=== PATIENT | male | born 1935 | race Caucasian/White ===

== ENCOUNTER → 2016-05-05 | Outpatient (CLI) | payer BC ==
[~2016-05-05] MED LIST: ASPI81TA28 PO; ATOR-26 PO; B-COCAP2 PO; CLOP1TAB15 PO; MAGNESIUM PO; MULT-513 PO; NTRGSL/4 UT; OMEG10007 PO; VITA400C15 PO
[2016-05-05 12:17] LABS: ALT/SGPT 36 U/L (12-78); BLOOD UREA NITROGEN 21 mg/dl (7-18); BUN/CREATININE RATIO 26.4 (10-20); CALCIUM 8.8 mg/dl (8.5-10.1); CARBON DIOXIDE 31 mmol/L (21-32); CHLORIDE 105 mmol/L (98-107); CHOLESTEROL 137 mg/dl (0-200); CREATININE 0.78 mg/dl (0.60-1.40); GLUCOSE 89 mg/dl (70-99); POTASSIUM 4.5 mmol/L (3.5-5.1); SODIUM 143 mmol/L (136-145); TRIGLYCERIDES 100 mg/dl (0-150); VERY LOW DENSITY LIPOPROT CALC 20 mg/dl
[2016-05-05 12:25] LABS: ALB/GLOB RATIO 1.2 (0.9-2); ALKALINE PHOSPHATASE 69 U/L (45-117); AST/SGOT 27 U/L (15-37); CHOLESTEROL/HDL RATIO 2.1; HDL CHOLESTEROL 64 mg/dl; LDL CHOLESTEROL CALCULATED 53 mg/dl; PHOSPHORUS 3.3 mg/dl (2.5-4.9); URIC ACID 5.3 mg/dl (2.6-7.2)
[2016-05-05 12:36] LABS: ESTIMATED AVERAGE GLUCOSE 114 mg/dl; HA1C FLAG Normal (Normal)
--- NOTE | 2016-05-09 12:49 | CODING QUERY MEDICAL NECESSITY ---
SUPPORTING DIAGNOSIS NEEDED A supporting diagnosis is required for the test/procedure performed on this patient in order for us to be reimbursed by the patient's insurance. Please provide a supporting diagnosis for the following test/procedure listed below next to the test name along with your signature. *If there is no additional diagnosis for this patient that would support the following test/procedure please document that below next to the test/procedure. Test(s)/Procedure(s) that require a supporting diagnosis: DOS 05/05 * Vitamin D DIAGNOSIS: * TSH DIAGNOSIS: * Lipids DIAGNOSIS: Provider Signature: Date: Thank you Sabiha Delcid Health Information Management Once completed, please kindly fax back to [phone] For questions please call [phone]
== END | disposition home or self-care (01) ==
LOC: C.LABBC 10:15
PROVIDERS: ATTEND Family Medicine
DX: R73.09 Other abnormal glucose (principal)

== ENCOUNTER → 2017-05-17 | Outpatient (CLI) | payer BC ==
[2017-05-17 10:59] LABS: BASO % 0.4 %; BASO ABS # 0.02 K/uL (0-0.2); EOS % 3.7 %; EOS ABS # 0.21 K/uL (0-0.5); HEMATOCRIT 46.2 % (42-52); HEMOGLOBIN 16.1 g/dL (14.0-18.0); LYMPH % 23.6 %; LYMPH ABS # 1.34 K/uL (1.2-3.4); MEAN CELL VOLUME 93.5 fL (80-100); MEAN CORPUSCULAR HEMOGLOBIN 32.6 pg (25-34); MEAN CORPUSCULAR HGB CONC 34.8 g/dl (32-36); MEAN PLATELET VOLUME 9.5 fL (7.4-10.4); MONO % 7.9 %; MONO ABS # 0.45 K/uL (0.11-0.59); NEUT % 64.4 %; NEUT ABS # 3.67 K/uL (1.4-6.5); PLATELET COUNT 200 K/uL (130-400); RED CELL DISTRIBUTION WIDTH CV 12.4 % (11.5-14.5); WHITE BLOOD COUNT 5.69 K/uL (4.8-10.8)
[2017-05-17 11:23] LABS: HEMOGLOBIN A1C 5.6 % (4.5-5.6)
[2017-05-17 11:33] LABS: BLOOD UREA NITROGEN 19 mg/dl (7-18); GLUCOSE 94 mg/dl (70-99)
[2017-05-17 11:34] LABS: ALBUMIN 3.7 gm/dl (3.4-5.0); ALT/SGPT 42 U/L (12-78); AST/SGOT 31 U/L (15-37); CARBON DIOXIDE 29 mmol/L (21-32); CHOLESTEROL 121 mg/dl (0-200); CREATININE 0.79 mg/dl (0.60-1.40); POTASSIUM 4.2 mmol/L (3.5-5.1); SODIUM 138 mmol/L (136-145); URIC ACID 5.4 mg/dl (2.6-7.2)
[2017-05-17 11:43] LABS: ALKALINE PHOSPHATASE 62 U/L (45-117); LDL CHOLESTEROL CALCULATED 40 mg/dl; TOTAL PROTEIN 6.7 gm/dl (6.4-8.2); TRANSFERRIN 222 mg/dl (200-360)
== END | disposition home or self-care (01) ==
LOC: C.LABBC 08:10
PROVIDERS: ATTEND Family Medicine
DX: R73.09 Other abnormal glucose (principal); E55.9 Vitamin D deficiency, unspecified; D51.9 Vitamin B12 deficiency anemia, unspecified; E78.9 Disorder of lipoprotein metabolism, unspecified; R53.83 Other fatigue

== ENCOUNTER 2020-09-10 07:54 | Observation (INO) ==
[2020-09-10] MEDS ORDERED: ASPIRIN CHEW 324 MG PO STA (07:59)
--- NOTE | 2020-09-10 08:20 | Emergency Department Note ---
History of Present Illness General Chief Complaint: Chest Pain Stated Complaint: CHEST PAIN Time Seen by Provider: 09/10/20 07:58 History of Present Illness Provider Complaint: chest pain Time: 06:00 Duration: improved and now resolved Onset: during rest Pain Location: right chest Pain Radiation: none Severity: moderate Current Pain Intensity: 0 Quality: + tightness, + aching and + heaviness Relieved By: + nitroglycerin Exacerbated By: + nothing Context: no recent illness, no recent surgery, no recent travel, no tra chriss/injury and no history of DVT/PE Associated symptoms: no nausea, no vomiting, no diaphoresis, no dyspnea, no sense of impending doom, no syncope, no palpitations, no fever and no leg swelling Treatments prior to arrival: nitroglycerin Home Medications Medication Instructions Recorded Confirmed Type ascorbic acid (vitamin C) 500 mg 500 mg PO QAM cap 01/23/19 09/10/20 History capsule atorvastatin 80 mg tablet 80 mg PO HS #90 tab 01/23/19 09/10/20 History cholecalciferol (vitamin D3) 25 1,000 unit PO QAM cap 01/23/19 09/10/20 History mcg (1,000 unit) capsule coenzyme Q10 100 mg capsule 100 mg PO QAM cap 01/23/19 09/10/20 History metoprolol succinate 25 mg 25 mg PO HS tab 01/23/19 09/10/20 History tablet,extended release 24 hr multivitamin 1 tab PO QAM 01/23/19 09/10/20 History vitamin E succinate 200 unit tablet 200 unit PO QAM tab 01/23/19 09/10/20 History aspirin [Aspir-81] 81 mg PO HS 09/10/20 09/10/20 History calcium carbonate [Calcium 600] 600 mg PO QAM 09/10/20 09/10/20 History clopidogrel [Plavix] 75 mg PO .Q2D@QAM 09/10/20 09/10/20 History memantine 10 mg PO HS 09/10/20 09/10/20 History nitroglycerin [Nitrostat] 0.4 mg SUBLINGUAL UD 09/10/20 09/10/20 History omega 1-xss-jjw-fish oil [Fish Oil] 1 cap PO BID 09/10/20 09/10/20 History vitamin B complex 1 tab PO QAM 09/10/20 09/10/20 History Allergies Allergy/AdvReac Type Severity Reaction Status Date / Time cinnamon Allergy Unknown Verified 09/10/20 08:45 Sulfa (Sulfonamide Allergy Unknown Verified 09/10/20 08:45 Antibiotics) Past Med/Surg History Medical History Acute renal failure (05/01/14) Hyperlipidemia Hypertension Memory loss [place] (myocardial infarction) Mild cognitive impairment No pertinent family history Surgical History No pertinent past surgical history Social History Smoking Status: Never smoker Feels Safe at Home: Yes Review of Systems A total of 10 systems reviewed and were otherwise negative Physical Exam Vital Signs Vital Signs - 24 hr 09/10/20 07:57 09/10/20 08:00 09/10/20 08:05 Temperature 36.5 C Temperature Source Oral Pulse Rate 62 58 L 58 L Respiratory Rate 18 15 21 Respiratory Effort / Characteristics Non-Labored Respiratory Depth Normal Blood Pressure 152/77 H 152/77 H Blood Pressure Mean 102 102 Pulse Oximetry 98 Oxygen Delivery Method Room Air Sepsis Recent Fever Within 48 Hours No Sepsis New/Unexplained Change in Mental Status No Sepsis Action Taken by Nursing No Action Required 09/10/20 08:12 09/10/20 08:30 09/10/20 09:00 Temperature Temperature Source Pulse Rate 57 L 70 Respiratory Rate 18 18 Respiratory Effort / Characteristics Respiratory Depth Blood Pressure 150/77 H 163/75 H 161/84 H Blood Pressure Mean 101 104 109 Pulse Oximetry Oxygen Delivery Method Sepsis Recent Fever Within 48 Hours Sepsis New/Unexplained Change in Mental Status Sepsis Action Taken by Nursing 09/10/20 09:44 09/10/20 09:45 09/10/20 09:46 Temperature Temperature Source Pulse Rate 65 63 64 Respiratory Rate 18 18 20 Respiratory Effort / Characteristics Respiratory Depth Blood Pressure 172/77 H Blood Pressure Mean 108 Pulse Oximetry 96 Oxygen Delivery Method Room Air Sepsis Recent Fever Within 48 Hours Sepsis New/Unexplained Change in Mental Status Sepsis Action Taken by Nursing 09/10/20 09:50 09/10/20 10:08 09/10/20 10:09 Temperature Temperature Source Pulse Rate 67 58 L 63 Respiratory Rate 17 19 17 Respiratory Effort / Characteristics Respiratory Depth Blood Pressure 189/87 H Blood Pressure Mean 121 Pulse Oximetry Oxygen Delivery Method Sepsis Recent Fever Within 48 Hours Sepsis New/Unexplained Change in Mental Status Sepsis Action Taken by Nursing 09/10/20 10:10 09/10/20 10:20 09/10/20 10:30 Temperature Temperature Source Pulse Rate 60 64 65 Respiratory Rate 20 20 20 Respiratory Effort / Characteristics Respiratory Depth Blood Pressure Blood Pressure Mean Pulse Oximetry Oxygen Delivery Method Sepsis Recent Fever Within 48 Hours Sepsis New/Unexplained Change in Mental Status Sepsis Action Taken by Nursing 09/10/20 10:40 09/10/20 10:50 09/10/20 11:00 Temperature Temperature Source Pulse Rate 64 63 67 Respiratory Rate 20 21 20 Respiratory Effort / Characteristics Respiratory Depth Blood Pressure Blood Pressure Mean Pulse Oximetry Oxygen Delivery Method Sepsis Recent Fever Within 48 Hours Sepsis New/Unexplained Change in Mental Status Sepsis Action Taken by Nursing 09/10/20 11:10 09/10/20 11:20 09/10/20 11:30 Temperature Temperature Source Pulse Rate 65 66 64 Respiratory Rate 32 H 13 13 Respiratory Effort / Characteristics Respiratory Depth Blood Pressure Blood Pressure Mean Pulse Oximetry Oxygen Delivery Method Sepsis Recent Fever Within 48 Hours Sepsis New/Unexplained Change in Mental Status Sepsis Action Taken by Nursing 09/10/20 11:40 09/10/20 11:50 09/10/20 12:00 Temperature Temperature Source Pulse Rate 62 87 58 L Respiratory Rate 17 28 H 18 Respiratory Effort / Characteristics Respiratory Depth Blood Pressure Blood Pressure Mean Pulse Oximetry Oxygen Delivery Method Sepsis Recent Fever Within 48 Hours Sepsis New/Unexplained Change in Mental Status Sepsis Action Taken by Nursing 09/10/20 12:10 09/10/20 12:20 09/10/20 12:30 Temperature Temperature Source Pulse Rate 61 61 63 Respiratory Rate 27 H 26 H 21 Respiratory Effort / Characteristics Respiratory Depth Blood Pressure 198/89 H 196/95 H Blood Pressure Mean 125 128 Pulse Oximetry Oxygen Delivery Method Sepsis Recent Fever Within 48 Hours Sepsis New/Unexplained Change in Mental Status Sepsis Action Taken by Nursing Physical Exam GENERAL: He is oriented to person, place, and time. He appears well-developed and well-nourished. He does not appear distressed. HENT: Exam performed. - Head: Normocephalic and atraumatic. - Right Ear: External ear normal. No mastoid tenderness. - Left Ear: External ear normal. No mastoid tenderness. - Mouth/Throat: The oropharynx is clear and moist. No trismus in the jaw. No dental abscesses or uvula swelling. No oropharyngeal exudate or tonsillar ab scesses. EYES: Conjunctivae and EOM are normal. Pupils are equal, round, and reactive to light. Right eye exhibits no discharge. Left eye exhibits no discharge. No scleral icterus. NECK: Normal range of motion. Neck supple. No JVD present. No spinous process tenderness present. No carotid bruit present. No rigidity. No tracheal deviation and normal range of motion present. No Brudzinski's sign and no Kernig's sign noted. CV: Normal rate, regular rhythm, normal heart sounds and intact distal pulses. There is no peripheral edema. Palpable radial pulses bue. PULM/CHEST: Effort normal and breath sounds normal. No respiratory distress. No stridor. He has no wheezes. He has no rales. - Chest Wall: He exhibits no tenderness. ABD: The abdomen is soft. Bowel sounds are normal. He has no distension. No mass is present. There is no tenderness. There is no rebound, no guarding, no Mari's sign and no tenderness at McBurney's point. Rovsig negative. MUSC/SKEL: Normal range of motion. There is no peripheral edema, tenderness or deformity. LYMPH: No cervical adenopathy. NEURO: He is alert and oriented to person, place, and time. He has normal strength. No cranial nerve deficit or sensory deficit. Coordination and gait normal. GCS eye subscore is 4. GCS verbal subscore is 5. GCS motor subscore is 6. Cerebellar tests wnl. SKIN: Skin is warm and dry. He is not diaphoretic. PSYCH: He has a normal mood and affect. Behavior is normal. Judgment and thought content normal. Course Course 0758: The patient was evaluated in room C4. A complete history and physical exam was performed Cardiac monitoring: An order was placed for continuous cardiac monitoring. The monitor shows a rate of 60 with sinus rhythm 1018: Vital signs stable. Labs show a leukocytosis of 13.3 and hyponatremia of 128. Patient's glucose is within normal limits. Troponin is within normal limits. Patient states his pain resolved after he took the nitroglycerin. Patient will be admitted to the hospital service for rule out [facility] hospitalist Dr. Fitzpatrick notified. Administered Medications Discontinued Medications Aspirin (Aspirin Chew 324 Mg) 324 mg PO NOW STA Stop: 09/10/20 08:00 Last Admin: 09/10/20 08:20 Dose: 324 mg Documented by: [id number] Heparin Sodium/Dextrose (Heparin Iv Adult Wt-Based Standard *No* Bolus Protocol) 1 ea IV ONE ONE; Protocol Stop: 09/10/20 11:49 Last Admin: 09/10/20 12:14 Dose: 1 ea Documented by: [id number] Heparin Sodium/Dextrose (Heparin 83987 Unit/500 Ml D5w) Confirm Administered Dose 25,000 units IV .STK-MED ONE Stop: 09/10/20 12:09 Last Admin: 09/10/20 12:15 Dose: 24 ml Documented by: [id number] Cosigned by: [id number] Ioversol (Optiray 350 500ml) 120 ml IV ONCE ONE Stop: 09/10/20 09:07 Last Admin: 09/10/20 09:06 Dose: 120 ml Documented by: [id number] Medical Decision Making Laboratory Data Result diagrams: 09/10/20 08:03 09/10/20 08:03 Labs: Lab Results 09/10/20 09/10/20 09/10/20 Range/Units 08:03 08:03 08:03 WBC 13.35 H (4.8-10.8) K/uL RBC 4.67 L (4.7-6.1) M/uL Hgb 15.4 (14.0-18.0) g/dL Hct 42.7 (42-52) % MCV 91.4 (80-100) fL MCH 33.0 (25-34) pg MCHC 36.1 H (32-36) g/dL RDW Std Deviation 39.1 (36.4-46.3) fL RDW Coeff of Meryl 11.7 (11.5-14.5) % Plt Count 255 (130-400) K/uL MPV 9.0 (7.4-10.4) fL Immature Gran % (Auto) 0.3 % Neut % (Auto) 90.5 % Lymph % (Auto) 4.8 % [place] % (Auto) 4.3 % Eos % (Auto) 0.0 % Baso % (Auto) 0.1 % Neut # (Auto) 12.09 H (1.4-6.5) K/uL Lymph # (Auto) 0.64 L (1.2-3.4) K/uL [place] # (Auto) 0.57 (0.11-0.59) K/uL Eos # (Auto) 0.00 (0-0.5) K/uL Baso # (Auto) 0.01 (0-0.2) K/uL Immature Gran # (Auto) 0.04 H (0.00-0.02) K/uL PT 11.2 (9.0-12.0) Seconds INR 1.1 (0.9-1.1) APTT 20.9 L (21.0-31.0) Seconds PTT Ratio 0.8 D-Dimer 9610 H* (0-500) ug/L FEU Sodium 128 L (136-145) mmol/L Potassium 4.1 (3.5-5.1) mmol/L Chloride 96 L (98-107) mmol/L Carbon Dioxide 24 (21-32) mmol/L Anion Gap 9.0 (3-11) BUN 11 (7-18) mg/dl Creatinine 0.65 (0.6-1.4) mg/dl Est Cr Clr Drug Dosing 80.5 ml/min Est GFR ( Amer) 104.3 ml/min Est GFR (Non-Af Amer) 90.0 ml/min BUN/Creatinine Ratio 16.1 (10-20) Glucose 143 H (70-99) mg/dl Calcium 8.8 (8.5-10.1) mg/dl Total Bilirubin 1.4 H (0.2-1) mg/dl Direct Bilirubin 0.3 H (0-0.2) mg/dl AST 28 (15-37) U/L ALT 29 (12-78) U/L Alkaline Phosphatase 86 (45-117) U/L Troponin I < 0.015 (0-0.045) ng/ml Total Protein 6.7 (6.4-8.2) gm/dl Albumin 3.5 (3.4-5.0) gm/dl Lipase 95 (73-393) U/L COVID-19 Eval Order SARS-CoV-2 (PCR) (Negative) 09/10/20 09/10/20 Range/Units 10:33 10:33 WBC (4.8-10.8) K/uL RBC (4.7-6.1) M/uL Hgb (14.0-18.0) g/dL Hct (42-52) % MCV (80-100) fL MCH (25-34) pg MCHC (32-36) g/dL RDW Std Deviation (36.4-46.3) fL RDW Coeff of Meryl (11.5-14.5) % Plt Count (130-400) K/uL MPV (7.4-10.4) fL Immature Gran % (Auto) % Neut % (Auto) % Lymph % (Auto) % [place] % (Auto) % Eos % (Auto) % Baso % (Auto) % Neut # (Auto) (1.4-6.5) K/uL Lymph # (Auto) (1.2-3.4) K/uL [place] # (Auto) (0.11-0.59) K/uL Eos # (Auto) (0-0.5) K/uL Baso # (Auto) (0-0.2) K/uL Immature Gran # (Auto) (0.00-0.02) K/uL PT (9.0-12.0) Seconds INR (0.9-1.1) APTT (21.0-31.0) Seconds PTT Ratio D-Dimer (0-500) ug/L FEU Sodium (136-145) mmol/L Potassium (3.5-5.1) mmol/L Chloride (98-107) mmol/L Carbon Dioxide (21-32) mmol/L Anion Gap (3-11) BUN (7-18) mg/dl Creatinine (0.6-1.4) mg/dl Est Cr Clr Drug Dosing ml/min Est GFR ( Amer) ml/min Est GFR (Non-Af Amer) ml/min BUN/Creatinine Ratio (10-20) Glucose (70-99) mg/dl Calcium (8.5-10.1) mg/dl Total Bilirubin (0.2-1) mg/dl Direct Bilirubin (0-0.2) mg/dl AST (15-37) U/L ALT (12-78) U/L Alkaline Phosphatase (45-117) U/L Troponin I (0-0.045) ng/ml Total Protein (6.4-8.2) gm/dl Albumin (3.4-5.0) gm/dl Lipase (73-393) U/L COVID-19 Eval Order Covid19 at [facility] SARS-CoV-2 (PCR) NEGATIVE (Negative) Imaging Data Chest x-ray: Radiologist's impression: Chest X-Ray 09/10/20 07:59 XR chest 2V PA/lateral HISTORY: 84 years-old Male cp acute atypical chest pain COMPARISON: CTA chest of same day, chest radiograph 06/04/2018 TECHNIQUE: PA and lateral views of the chest FINDINGS: Cardiomediastinal and hilar silhouettes are within normal limits. Calcified plaque of the thoracic aorta. Loop recorder device. No pneumothorax, pleural effusion, airspace consolidation or overt pulmonary edema. Bones of the chest appear grossly intact. IMPRESSION: No acute process. ACT 112: Negative or not required by law. The above report was generated using voice recognition software. It may contain grammatical, syntax or spelling errors. Electronically signed by: Hilton Honeycutt M.D. 09/10/2020 9:34 AM Chest CTA 09/10/20 08:47 CT ANGIOGRAM OF THE CHEST CLINICAL HISTORY: Atypical chest pain. Reported history of melanoma. COMPARISON STUDY: Chest x-ray dated 06/04/2018. Chest CT dated 07/02/2008. PET/CT dated 08/02/2009. TECHNIQUE: Following the IV administration of 120 cc of Optiray 350, CT angiogram of the chest was performed from the upper abdomen to the thoracic inlet utilizing the pulmonary embolus protocol. Images are reviewed in the axial, sagittal, and coronal planes. 3-D MIPS images are created and assessed. IV contrast was administered without complication. A dose lowering technique was utilized adhering to the principles of ALARA. CT DOSE: 407.50 mGy.cm FINDINGS: Thyroid: Imaged portions of the thyroid gland are normal in size and attenuation. Thoracic aorta: There is atherosclerotic calcification of the thoracic aorta, which is normal in caliber and demonstrates standard 3-vessel arch anatomy. No dissection is seen. Pulmonary vasculature: The pulmonary trunk is normal in caliber. There are no filling defects identified in main, lobar, or segmental pulmonary branches to suggest pulmonary embolus. Heart: The heart is enlarged and without pericardial effusion. The coronary arteries are densely calcified. Lungs and pleural spaces: There is no airspace consolidation typical for pneumonia or pleural effusion. The trachea and central airways are clear. Scarring/atelectasis is noted at the lung bases. There is a 7 mm left lower lobe pulmonary nodule seen on image #132. No additional pulmonary lesions are identified. Mediastinum: There is no mediastinal lymphadenopathy. Nazia: Clear. Axillae: There is no axillary lymphadenopathy. Upper abdomen: Diverticulosis is noted in the partially imaged left colon. There is a small hiatal hernia. Skeletal structures: The skeletal structures are osteopenic. Degenerative change is noted in the shoulders and thoracic spinal. There is mild hyperkyphosis. No lytic or blastic bony lesions are seen. IMPRESSION: 1. There is no evidence of pulmonary embolus in the main, lobar, or segmental pulmonary arteries. 2. There is no airspace consolidation or pleural effusion. 3. Cardiomegaly. 4. There is a 7 mm left lower lobe pulmonary nodule. This is pathologically indeterminant but new from studies dating 2008 and 2009. Neoplasm is the libertad gnosis of exclusion. A 3 month follow-up chest CT is recommended for reassessment, and nonemergent pulmonology follow-up is advised. 5. Additional findings as above. ACT 112: Positive. There are findings on this exam that require communication between the performing entity and the patient following Patient Test Result Information Act ([place] Act 112) guidelines. Electronically signed by: Juan Miguel Baker M.D. 09/10/2020 10:07 AM ECG Data Indication: chest pain Rate (beats per minute): 62 Rhythm: normal sinus Findings: + 1st degree AV block; no ST depression, no ST elevation and no prolonged QT MDM Narrative 0758: The patient was evaluated in room C4. A complete history and physical exam was performed Cardiac monitoring: An order was placed for continuous cardiac monitoring. The monitor shows a rate of 60 with sinus rhythm 1018: Vital signs stable. Labs show a leukocytosis of 13.3 and hyponatremia of 128. Patient's glucose is within normal limits. Troponin is within normal limits. Patient states his pain resolved after he took the nitroglycerin. Patient will be admitted to the hospital service for rule out [facility] hospitalist Dr. Fitzpatrick notified. Impression & Plan Chest pain Discharge Plan Visit Data Chief Complaint: Chest Pain Stated Complaint: CHEST PAIN ED Provider: Jarrett Mahan Discharge Problem: Chest pain Patient Disposition: Being Evaluated by Hospitalist Forms Stand Alone Forms: [facility] Prescriptions Prescriptions: No Action atorvastatin 80 mg tablet 80 mg PO HS Qty: 90 RF: 0 coenzyme Q10 100 mg capsule 100 mg PO QAM RF: 0 metoprolol succinate 25 mg tablet extended release 24 hr 25 mg PO HS RF: 0 multivitamin [Daily Multi-Vitamin] tablet 1 tab PO QAM RF: 0 ascorbic acid (vitamin C) 500 mg capsule 500 mg PO QAM RF: 0 cholecalciferol (vitamin D3) 1,000 unit capsule 1,000 unit PO QAM RF: 0 vitamin E succinate 200 unit tablet 200 unit PO QAM RF: 0 clopidogrel [Plavix] 75 mg Tablet 75 mg PO .Q2D@QAM RF: 0 aspirin [Aspir-81] 81 mg Tablet,Delayed Release (Dr/Ec) 81 mg PO HS RF: 0 calcium carbonate [Calcium 600] 600 mg calcium (1,500 mg) Tablet 600 mg PO QAM RF: 0 nitroglycerin [Nitrostat] 0.4 mg Tablet, Sublingual 0.4 mg sublingual UD RF: 0 vitamin B complex Tablet 1 tab PO QAM RF: 0 omega 7-ltb-bdb-fish oil [Fish Oil] 1,200 (144-216) mg Capsule 1 cap PO BID RF: 0 memantine 10 mg tablet 10 mg PO HS RF: 0 Referrals Referrals: Yunier Shoemaker MD [Primary Care Provider] - Discharge Problem: Chest pain Qualifiers: Chest pain type: unspecified Qualified Code(s): R07.9 - Chest pain, unspecified
[2020-09-10 08:24] LABS: Basophils # (auto) 0.01 K/uL (0-0.2); Basophils % (auto) 0.1 %; Hematocrit (blood only) 42.7 % (42-52); Hemoglobin 15.4 g/dL (14.0-18.0); Immature Granulocytes # (auto) 0.04 K/uL (0.00-0.02); Immature Granulocytes % (auto) 0.3 %; Lymphocytes # (auto) 0.64 K/uL (1.2-3.4); Lymphocytes % (auto) 4.8 %; Mean Corpuscular Hgb Conc 36.1 g/dL (32-36); Mean Corpuscular Volume 91.4 fL (80-100); Monocytes # (auto) 0.57 K/uL (0.11-0.59); Monocytes % (auto) 4.3 %; Neutrophils # (auto) 12.09 K/uL (1.4-6.5); Neutrophils % (auto) 90.5 %; Platelet Count 255 K/uL (130-400); RDW Coefficient of Variation 11.7 % (11.5-14.5); RDW Standard Deviation 39.1 fL (36.4-46.3); Red Blood Count 4.67 M/uL (4.7-6.1); White Blood Count 13.35 K/uL (4.8-10.8)
[2020-09-10 08:41] LABS: Alanine Aminotransferase 29 U/L (12-78); Albumin Level 3.5 gm/dl (3.4-5.0); Aspartate Aminotransferase 28 U/L (15-37); BUN Creatinine Ratio 16.1 (10-20); Bilirubin Direct 0.3 mg/dl (0-0.2); Blood Urea Nitrogen 11 mg/dl (7-18); Calcium 8.8 mg/dl (8.5-10.1); Carbon Dioxide 24 mmol/L (21-32); Chloride 96 mmol/L (98-107); Creatinine Clr Calc Pharmacy 80.5 ml/min; Est GFR (African American) 104.3 ml/min; Glucose 143 mg/dl (70-99); Lipase 95 U/L (73-393); Potassium 4.1 mmol/L (3.5-5.1); Sodium 128 mmol/L (136-145)
[2020-09-10 08:45] LABS: INR 1.1 (0.9-1.1); Partial Thromboplastin Ratio 0.8; Partial Thromboplastin Time 20.9 Seconds (21.0-31.0); Prothrombin Time 11.2 Seconds (9.0-12.0)
[2020-09-10 08:46] LABS: Alkaline Phosphatase 86 U/L (45-117); Bilirubin,Total 1.4 mg/dl (0.2-1); D Dimer 9610 ug/L FEU (0-500); Total Protein 6.7 gm/dl (6.4-8.2); Troponin I < 0.015 ng/ml (0-0.045)
[2020-09-10] MEDS ORDERED: OPTIRAY 350 500ml IV ONE (09:06)
--- NOTE | 2020-09-10 09:36 | XRay Report ---
XR chest 2V PA/lateral HISTORY: 84 years-old Male cp acute atypical chest pain COMPARISON: CTA chest of same day, chest radiograph 06/04/2018 TECHNIQUE: PA and lateral views of the chest FINDINGS: Cardiomediastinal and hilar silhouettes are within normal limits. Calcified plaque of the thoracic ao rta. Loop recorder device. No pneumothorax, pleural effusion, airspace consolidation or overt pulmona ry edema. Bones of the chest appear grossly intact. IMPRESSION: No acute process. ACT 112: Negative or not required by law. The above report was generated using voice recognition software. It may contain grammatical, syntax o r spelling errors. Electronically signed by: Hilton Honeycutt M.D. 09/10/2020 9:34 AM
--- NOTE | 2020-09-10 10:08 | CT Scan Report ---
CT ANGIOGRAM OF THE CHEST CLINICAL HISTORY: Atypical chest pain. Reported history of melanoma. COMPARISON STUDY: Chest x-ray dated 06/04/2018. Chest CT dated 07/02/2008. PET/CT dated 08/02/2009. TECHNIQUE: Following the IV administration of 120 cc of Optiray 350, CT angiogram of the chest was pe rformed from the upper abdomen to the thoracic inlet utilizing the pulmonary embolus protocol. Images are reviewed in the axial, sagittal, and coronal planes. 3-D MIPS images are created and assessed. I V contrast was administered without complication. A dose lowering technique was utilized adhering to the principles of ALARA. CT DOSE: 407.50 mGy.cm FINDINGS: Thyroid: Imaged portions of the thyroid gland are normal in size and attenuation. Thoracic aorta: There is atherosclerotic calcification of the thoracic aorta, which is normal in giancarlo david and demonstrates standard 3-vessel arch anatomy. No dissection is seen. Pulmonary vasculature: The pulmonary trunk is normal in caliber. There are no filling defects identif ied in main, lobar, or segmental pulmonary branches to suggest pulmonary embolus. Heart: The heart is enlarged and without pericardial effusion. The coronary arteries are densely calc ified. Lungs and pleural spaces: There is no airspace consolidation typical for pneumonia or pleural effusio n. The trachea and central airways are clear. Scarring/atelectasis is noted at the lung bases. There is a 7 mm left lower lobe pulmonary nodule seen on image #132. No additional pulmonary lesions are id entified. Mediastinum: There is no mediastinal lymphadenopathy. Nazia: Clear. Axillae: There is no axillary lymphadenopathy. Upper abdomen: Diverticulosis is noted in the partially imaged left colon. There is a small hiatal he rnia. Skeletal structures: The skeletal structures are osteopenic. Degenerative change is noted in the shou lders and thoracic spinal. There is mild hyperkyphosis. No lytic or blastic bony lesions are seen. IMPRESSION: 1. There is no evidence of pulmonary embolus in the main, lobar, or segmental pulmonary arteries. 2. There is no airspace consolidation or pleural effusion. 3. Cardiomegaly. 4. There is a 7 mm left lower lobe pulmonary nodule. This is pathologically indeterminant but new fro m studies dating 2008 and 2009. Neoplasm is the diagnosis of exclusion. A 3 month follow-up chest CT is recommended for reassessment, and nonemergent pulmonology follow-up is advised. 5. Additional findings as above. ACT 112: Positive. There are findings on this exam that require communication between the performing entity and the patient following Patient Test Result Information Act ([place] Act 112) guidelines. Electronically signed by: Juan Miguel Baker M.D. 09/10/2020 10:07 AM
--- NOTE | 2020-09-10 11:04 | History & Physical Report ---
Date of Service September 10, 2020 Assessment & Plan (1) Chest pain: Mr Mart is an 84-year-old male with history of CAD s/p Non-ST Elevation IA 2008, Hypertension, Dyslipidemia, Bradycardia, Prior Traumatic Syncope, and Mild Cognitive Impairment who presents to the ER this morning after waking with left- sided chest pain beginning at about 6:00 a.m. and lasting for at least half an hour although he and his are not very good historians. Patient's states that he appeared pale at the time and also complained of some back pain. He denies any radiation of pain down his arms or elsewhere. No other associated symptoms. Specifically denies any associated nausea, vomiting, or dyspnea. They tried Nitrolingual spray (that in 2019) x2. It took about half an hour for the EMS to arrive. Patient is currently asymptomatic. He has not had any exertional chest pain in past weeks nor has he had any drop-off in his exertional tolerance. He otherwise complains of swelling of his left forearm since having blood drawn earlier today. Apparently the dressing was very tight -- we will continue to monitor. His initial troponin I is undetectable at less than 0.015 ng/ml. His D-dimer is elevated but CTA Chest showed no PE. Recommend the followin. Admit to PCU with telemetry. 2. Transthoracic echocardiogram to evaluate for any wall motion abnormalities. 3. Standard dose heparin drip no bolus. 4. Continue Toprol XL 25 mg daily - (he has had significant bradycardia in the past so will not titrate). 5. Continue Aspirin 81 mg daily. 6. Increase Plavix to 75 mg daily. 7. Topical and sublingual nitrates as needed. 8. Continue high-intensity Atorvastatin 80 mg daily. 9. Serial troponin I levels. Serial EKGs. (2) CAD (coronary artery disease): -- Manage as outlined above. (3) Hypertension: BP is elevated on admission. -- Continue Toprol XL 25 mg daily. -- Consider adding an ACEI or an ARB. -- Add prn Hydralazine for now. (4) Hyperlipidemia: -- Continue high-intensity Atorvastatin 80 mg daily. History of Present Illness Chief Complaint: -- Chest Pain. Primary Care Provider: Yunier Shoemaker MD Mr Mart is an 84-year-old male with history of CAD s/p Non-ST Elevation IA 2008, Hypertension, Dyslipidemia, Bradycardia, Prior Traumatic Syncope, and Mild Cognitive Impairment who presents to the ER this morning after waking with left- sided chest pain beginning at about 6:00 a.m. and lasting for at least half an hour although he and his are not very good historians. Patient's states that he appeared pale at the time and also complained of some back pain. He denies any radiation of pain down his arms or elsewhere. No other associated symptoms. Specifically denies any associated nausea, vomiting, or dyspnea. They tried Nitrolingual spray (that in 2019) x2. It took about half an hour for the EMS to arrive. Patient is currently being seen in . He specifically denies any back or chest pain at this time. He denies any shortness of breath. He has not had any orthopnea or PND. No palpitations, syncope, or near syncope. He has not had any exertional chest pain in past weeks nor has he had any drop-off in his exertional tolerance. He otherwise complains of swelling of his left forearm since having blood drawn earlier today. Apparently the dressing was very tight. His initial troponin I is undetectable at less than 0.015 ng/ml. His D-dimer is elevated. Patient is had the following Cardiac Studies: Stress Cardiolite 04/09/2013: -- Negative for myocardial ischemia at 100% maximum predicted heart rate. -- LVEF was normal, normal wall motion. CARDIAC CATHETERIZATION 2008: 1. LVEF 60%. 2. LMCA- 40% stenosis. 3. LAD- 60% proximal LAD stenosis. 4. D2- 80% ostial stenosis. 5. LCx- 50% ostial stenosis. 6. RCA- Nonocclusive disease throughout the vessel with up to 30%-40% narrowings. Allergies Allergy/AdvReac Type Severity Reaction Status Date / Time cinnamon Allergy Unknown Verified 09/10/20 08:45 Sulfa (Sulfonamide Allergy Unknown Verified 09/10/20 08:45 Antibiotics) Home Medications Medication Instructions Recorded Confirmed Type ascorbic acid (vitamin C) 500 mg 500 mg PO QAM cap 01/23/19 09/10/20 History capsule atorvastatin 80 mg tablet 80 mg PO HS #90 tab 01/23/19 09/10/20 History cholecalciferol (vitamin D3) 25 1,000 unit PO QAM cap 01/23/19 09/10/20 History mcg (1,000 unit) capsule coenzyme Q10 100 mg capsule 100 mg PO QAM cap 01/23/19 09/10/20 History metoprolol succinate 25 mg 25 mg PO HS tab 01/23/19 09/10/20 History tablet,extended release 24 hr multivitamin 1 tab PO QAM 01/23/19 09/10/20 History vitamin E succinate 200 unit tablet 200 unit PO QAM tab 01/23/19 09/10/20 History aspirin [Aspir-81] 81 mg PO HS 09/10/20 09/10/20 History calcium carbonate [Calcium 600] 600 mg PO QAM 09/10/20 09/10/20 History clopidogrel [Plavix] 75 mg PO .Q2D@QAM 09/10/20 09/10/20 History memantine 10 mg PO HS 09/10/20 09/10/20 History nitroglycerin [Nitrostat] 0.4 mg SUBLINGUAL UD 09/10/20 09/10/20 History omega 0-zpl-wvm-fish oil [Fish Oil] 1 cap PO BID 09/10/20 09/10/20 History vitamin B complex 1 tab PO QAM 09/10/20 09/10/20 History Past Med/Surg History Medical History Acute renal failure (05/01/14) Hyperlipidemia Hypertension Memory loss IA (myocardial infarction) Mild cognitive impairment No pertinent family history Surgical History No pertinent past surgical history Social History Smoking Status: Never smoker Feels Safe at Home: Yes Review of Systems Review of Systems: All systems reviewed & are unremarkable except as noted in Subjective Physical Exam Physical Exam: GENERAL: Patient in no acute distress. HEENT: Head is atraumatic, normocephalic. EOM's intact. Facies symmetric. No perioral cyanosis. NECK: No JVD. JVP is at the level of the clavicle sitting upright. Carotid upstrokes are + 2 bilaterally. No bruits are noted. CHEST/LUNGS: Clear to auscultation throughout all lung dean. No wheezes, rales, or crackles. CVS: S1 and S2 are regular without obvious murmurs, gallops, or rubs. PMI is nondisplaced. No lifts, heaves, or thrills. No abdominal aortic or renal bruits. ABDOMINAL EXAM: Bowel sounds are present. No masses, organomegaly, or tenderness. EXTREMITIES: No clubbing or cyanosis. No edema. Intact posterior tibial and radial pulses bilaterally. MUSCULOSKELETAL EXAM: No reproducible chest wall tenderness to palpation. NEUROLOGIC EXAM: Patient is awake, alert, and oriented. Pleasant and cooperative. His answers most of the questions for him due to his cognitive impairment. Speech is clear. Normal movement in all 4 extremities. Follows commands. EKG 09/10/20: -- Normal sinus rhythm with Q waves in leads II and III, possible age-indeterminate inferior infarct. -- Abnormal EKG. Results & Data Results & Data ([facility]) Vital Signs (Past 12 Hours) Vital Signs Temp Pulse Resp BP Pulse Ox 09/10/20 09:45 63 18 172/77 H 09/10/20 09:44 65 18 96 09/10/20 09:00 161/84 H 09/10/20 08:30 70 18 163/75 H 09/10/20 08:12 57 L 18 150/77 H 09/10/20 08:05 58 L 21 09/10/20 08:00 58 L 15 152/77 H 09/10/20 07:57 36.5 C 62 18 152/77 H 98 Laboratory Results Laboratory Results - last 24 hr 09/10/20 09/10/20 09/10/20 08:03 08:03 08:03 WBC 13.35 H RBC 4.67 L Hgb 15.4 Hct 42.7 MCV 91.4 MCH 33.0 MCHC 36.1 H RDW Std Deviation 39.1 RDW Coeff of Meryl 11.7 Plt Count 255 MPV 9.0 Immature Gran % (Auto) 0.3 Neut % (Auto) 90.5 Lymph % (Auto) 4.8 Smyth % (Auto) 4.3 Eos % (Auto) 0.0 Baso % (Auto) 0.1 Neut # (Auto) 12.09 H Lymph # (Auto) 0.64 L Smyth # (Auto) 0.57 Eos # (Auto) 0.00 Baso # (Auto) 0.01 Immature Gran # (Auto) 0.04 H PT 11.2 INR 1.1 APTT 20.9 L PTT Ratio 0.8 D-Dimer 9610 H* Sodium 128 L Potassium 4.1 Chloride 96 L Carbon Dioxide 24 Anion Gap 9.0 BUN 11 Creatinine 0.65 Est Cr Clr Drug Dosing 80.5 Est GFR ( Amer) 104.3 Est GFR (Non-Af Amer) 90.0 BUN/Creatinine Ratio 16.1 Glucose 143 H Calcium 8.8 Total Bilirubin 1.4 H Direct Bilirubin 0.3 H AST 28 ALT 29 Alkaline Phosphatase 86 Troponin I < 0.015 Total Protein 6.7 Albumin 3.5 Lipase 95 COVID-19 Eval Order SARS-CoV-2 (PCR) 09/10/20 09/10/20 10:33 10:33 WBC RBC Hgb Hct MCV MCH MCHC RDW Std Deviation RDW Coeff of Meryl Plt Count MPV Immature Gran % (Auto) Neut % (Auto) Lymph % (Auto) Smyth % (Auto) Eos % (Auto) Baso % (Auto) Neut # (Auto) Lymph # (Auto) Smyth # (Auto) Eos # (Auto) Baso # (Auto) Immature Gran # (Auto) PT INR APTT PTT Ratio D-Dimer Sodium Potassium Chloride Carbon Dioxide Anion Gap BUN Creatinine Est Cr Clr Drug Dosing Est GFR ( Amer) Est GFR (Non-Af Amer) BUN/Creatinine Ratio Glucose Calcium Total Bilirubin Direct Bilirubin AST ALT Alkaline Phosphatase Troponin I Total Protein Albumin Lipase COVID-19 Eval Order Covid19 at [facility] SARS-CoV-2 (PCR) NEGATIVE Diagnostic Findings CTA CHEST 09/10/20: 1. There is no evidence of pulmonary embolus in the main, lobar, or segmental pulmonary arteries. 2. There is no airspace consolidation or pleural effusion. 3. Cardiomegaly. 4. There is atherosclerotic calcification of the thoracic aorta, which is normal in caliber and demonstrates standard 3-vessel arch anatomy. No dissection is seen. 5. There is a 7 mm left lower lobe pulmonary nodule. This is pathologically indeterminant but new from studies dating 2008 and 2009. Neoplasm is the diagnosis of exclusion. A 3 month follow-up chest CT is recommended for reassessment, and nonemergent pulmonology follow-up is advised. CXR 09/10/20: -- No acute process. Medications Administered Medications ascorbic acid (vitamin C) 500 mg capsule 500 mg PO QAM cap 01/23/19 [History Confirmed 09/10/20] atorvastatin 80 mg tablet 80 mg PO HS #90 tab 01/23/19 [History Confirmed 09/10/20] cholecalciferol (vitamin D3) 25 mcg (1,000 unit) capsule 1,000 unit PO QAM cap 01/23/19 [History Confirmed 09/10/20] coenzyme Q10 100 mg capsule 100 mg PO QAM cap 01/23/19 [History Confirmed 09/10/20] metoprolol succinate 25 mg tablet,extended release 24 hr 25 mg PO HS tab 01/23/19 [History Confirmed 09/10/20] multivitamin 1 tab PO QAM 01/23/19 [History Confirmed 09/10/20] vitamin E succinate 200 unit tablet 200 unit PO QAM tab 01/23/19 [History Confirmed 09/10/20] aspirin [Aspir-81] 81 mg PO HS 09/10/20 [History Confirmed 09/10/20] calcium carbonate [Calcium 600] 600 mg PO QAM 09/10/20 [History Confirmed 09/10/20] clopidogrel [Plavix] 75 mg PO .Q2D@QAM 09/10/20 [History Confirmed 09/10/20] memantine 10 mg PO HS 09/10/20 [History Confirmed 09/10/20] nitroglycerin [Nitrostat] 0.4 mg SUBLINGUAL UD 09/10/20 [History Confirmed 09/10/20] omega 6-hoa-ohv-fish oil [Fish Oil] 1 cap PO BID 09/10/20 [History Confirmed 09/10/20] vitamin B complex 1 tab PO QAM 09/10/20 [History Confirmed 09/10/20] Code Status & VTE Plan Code Status Full Code VTE Prophylaxis Plan VTE Prophylaxis will be ordered: Yes Supervising Physician Co-Signing Physician Notes Patient discussed with SPENCER, agree with his note above. Patient presented with chest pain. He does have a history of coronary artery disease as documented. Plan to trend cardiac enzymes, continue medications as noted including low-dose aspirin, high intensity statins, Plavix, and metoprolol as noted. 2D echo ordered. Patient was also started on heparin drip, will ask cardiology to evaluate for further recommendations. PG Care Time/CCT Total # of Minutes Spent Total Time Spent with Patient: Total time spent is greater than 50% in coordination of care (as documented) at patient's floor/unit and/or counseling patient:45 Coding Level of Care Code 25989 Initial Inpt Care Lvl 3 Diagnoses Chest pain R07.9 CAD (coronary artery disease) I25.10 Hypertension I10 Hyperlipidemia E78.5 Time Spent (min) 70
[2020-09-10] MEDS ORDERED: Heparin IV Adult Wt-Based Standard *NO* Bolus Protocol IV ONE (11:48)
[2020-09-10] MEDS ORDERED: HEPARIN SODIUM/DEXTROSE 25,000 UNITS/500 ML BAG IV SCH (12:04)
[2020-09-10] MEDS ORDERED: HEPARIN 25000 UNIT/500 ML D5W IV ONE (12:08)
[2020-09-10] MEDS ORDERED: MAGNESIUM HYDROXIDE SUSP 30 ML UDC PO PRN (15:46)
[2020-09-10] MEDS ORDERED: ONDANSETRON INJ 2 MG/ML 2 ML VIAL IV PRN (15:46)
[2020-09-10] MEDS ORDERED: ALUMINUM/MAGNESIUM SUSP 30 ML UDC PO PRN (15:46)
[2020-09-10] MEDS ORDERED: NON-FORMULARY MEDICATION (Coenzyme Q10 100 mg capsule) PO SCH (15:46)
[2020-09-10] MEDS ORDERED: NITROGLYCERIN SL 0.4 MG/TAB TAB SL PRN (15:46)
[2020-09-10] MEDS ORDERED: hydrALAZINE HCL 20 MG/ML VIAL IV PRN (15:46)
[2020-09-10] MEDS ORDERED: NITROGLYCERIN SL 0.4 MG/TAB TAB SL SCH (15:46)
[2020-09-10] MEDS ORDERED: ZOLPIDEM TARTRATE 5 MG TAB PO PRN (15:46)
[2020-09-10] MEDS ORDERED: POLYETHYLENE (MIRALAX) 17 GM PACK PO PRN (15:46)
[2020-09-10] MEDS ORDERED: ACETAMINOPHEN 325 MG TAB PO PRN (15:46)
[2020-09-10] MEDS ORDERED: MoRPHine SULFATE 2 MG/ML CARP IV PRN (15:46)
[2020-09-10] MEDS: CHOLECALCIFEROL 1,000 UNITS 25 MCG TAB PO SCH (16:50)
[2020-09-10] MEDS: MULTIVITAMIN TAB PO SCH (16:50)
[2020-09-10] MEDS: CLOPIDOGREL BISULFATE 75 MG TAB PO SCH (16:50)
[2020-09-10] MEDS: NITROGLYCERIN 2% OINTMENT 30GM TUBE EXT SCH (16:51)
[2020-09-10 19:17] LABS: Partial Thromboplastin Ratio 2.4
[2020-09-10 19:35] LABS: Partial Thromboplastin Time 63.9 Seconds (21.0-31.0)
[2020-09-10] MEDS: OMEGA-3 (PURIFIED FISH OIL) 1 GM CAP PO SCH (20:29)
[2020-09-10] MEDS ORDERED: ASPIRIN 81 MG ECTAB PO SCH (21:00)
[2020-09-10] MEDS ORDERED: ATORVASTATIN 40 MG TAB PO SCH (21:00)
[2020-09-10] MEDS ORDERED: MEMANTINE HCL 10 MG TAB PO SCH (21:00)
[2020-09-10] MEDS ORDERED: METOPROLOL SUCC 25MG EXT REL TAB PO SCH (21:00)
[2020-09-11] MEDS: NITROGLYCERIN 2% OINTMENT 30GM TUBE EXT SCH ×2 (00:36→05:40)
--- NOTE | 2020-09-11 05:58 | Electrocardiogram Report ---
Test Reason : Blood Pressure : / mmHG Vent. Rate : 062 BPM Atrial Rate : 062 BPM P-R Int : 206 ms QRS Dur : 098 ms QT Int : 438 ms P-R-T Axes : 060 015 065 degrees QTc Int : 444 ms Normal sinus rhythm Possible Inferior infarct , age undetermined Abnormal ECG When compared with ECG of 01-MAY-2014 18:24, Borderline criteria for Inferior infarct are now Present Confirmed by Richard Cadena ([id number]) on 09/11/2020 5:57:50 AM Referred By: REFERRED SELF Confirmed By:Richard Cadena
[2020-09-11 06:11] LABS: Basophils # (auto) 0.01 K/uL (0-0.2); Basophils % (auto) 0.1 %; Eosinophils # (auto) 0.09 K/uL (0-0.5); Eosinophils % (auto) 0.7 %; Hematocrit (blood only) 41.1 % (42-52); Immature Granulocytes # (auto) 0.04 K/uL (0.00-0.02); Immature Granulocytes % (auto) 0.3 %; Lymphocytes # (auto) 1.38 K/uL (1.2-3.4); Lymphocytes % (auto) 10.9 %; Mean Corpuscular Hemoglobin 32.1 pg (25-34); Mean Corpuscular Hgb Conc 36.5 g/dL (32-36); Monocytes # (auto) 1.38 K/uL (0.11-0.59); Monocytes % (auto) 10.9 %; Neutrophils # (auto) 9.74 K/uL (1.4-6.5); Neutrophils % (auto) 77.1 %; Platelet Count 219 K/uL (130-400); RDW Coefficient of Variation 11.8 % (11.5-14.5); RDW Standard Deviation 37.9 fL (36.4-46.3); Red Blood Count 4.67 M/uL (4.7-6.1); White Blood Count 12.64 K/uL (4.8-10.8)
[2020-09-11 06:31] LABS: Partial Thromboplastin Ratio 4.3
[2020-09-11 06:42] LABS: BUN Creatinine Ratio 19.8 (10-20); Calcium 9.1 mg/dl (8.5-10.1); Creatinine Clr Calc Pharmacy 93.4 ml/min; Est GFR (African American) 110.9 ml/min; Est GFR (Non-African American) 95.7 ml/min; Potassium 3.8 mmol/L (3.5-5.1)
--- NOTE | 2020-09-11 07:05 | Hospitalist Progress Note ---
Date of Service September 11, 2020 Assessment & Plan Admission and Anticipated Discharge Date Admission Date: September 10, 2020 Subjective Hasn't had any recent chest pain. L cp yest AM didn't go down arm. No SOB, OLGUIN. No palp. No dizzi. All ros neg. Lives at home w/ . Follows [facility], has been a while since visit. Review of Systems Review of Systems: Constitutional: Denies fever, chills Eyes: Denies blurry vision, vision changes ENT: Denies sore throat Cardiovascular: Denies chest pain, palpitations Respiratory: Denies shortness of breath Gastrointestinal: Denies abdominal pain, nausea, vomiting, constipation, diarrhea Genitourinary: Denies urinary symptoms including dysuria Musculoskeletal: Denies weakness, muscle aches/pain, joint aches/pain Neurological: Denies headache, numbness, tingling, focal weakness Physical Exam Physical Exam: General: Grossly A&O. NAD. Cooperative. Mild memory impairment; when asked about chest pain episode, patient confused the timing of chest pain episode and thought it occurred 1 wk ago while mowing grass. HEENT: Atraumatic, normocephalic. EOMI. dry mm. Pulm: CTAB. -wheezes, -rales, -rhonchi. No respiratory distress. Cardiac: RRR, -mrg. Radial pulses intact and symmetrical 2+ bilat. NO LE edema. Abdominal: Nontender, nondistended, soft. Results & Data Results & Data ([facility]) Vital Signs (Past 12 Hours) Vital Signs Temp Pulse Pulse Resp BP Pulse Ox 09/11/20 03:36 36.9 C 69 18 126/72 93 09/11/20 01:03 70 09/10/20 23:04 36.9 C 68 18 143/79 H 94 09/10/20 19:48 36.9 C 81 16 176/96 H 95 Resident Activity Tracking Resident Involvement: Resident Care Provided Care Provided: Adult Hospital Medicine
[2020-09-11] MEDS ORDERED: TOCOPHERYL, DL-ALPHA 100 UNITS CAP PO SCH (09:00)
[2020-09-11] MEDS ORDERED: VITAMIN B COMPLEX TAB PO SCH (09:00)
[2020-09-11] MEDS ORDERED: ASCORBIC ACID 500 MG TAB PO SCH (09:00)
[2020-09-11] MEDS ORDERED: CALCIUM CARBONATE 1250MG TAB PO SCH (09:00)
[2020-09-11] MEDS: CLOPIDOGREL BISULFATE 75 MG TAB PO SCH (09:03)
[2020-09-11] MEDS: MULTIVITAMIN TAB PO SCH (09:03)
[2020-09-11] MEDS: CHOLECALCIFEROL 1,000 UNITS 25 MCG TAB PO SCH (09:03)
[2020-09-11] MEDS: OMEGA-3 (PURIFIED FISH OIL) 1 GM CAP PO SCH (09:04)
--- NOTE | 2020-09-11 10:48 | XCELERA ---
[id number]
--- NOTE | 2020-09-11 11:36 | Cardiology Consultation ---
Date of Consultation September 11, 2020 Assessment & Plan (1) Chest pain: The patient is a poor historian, but his does report symptoms described as chest, arm and back discomfort yesterday. While there seemed to be some variability and the assessment of his symptoms, his was quite conf ident that the symptoms lasted for few hours over the course of yesterday. This is not resulted in any elevation of his cardiac biomarkers suggesting the symptoms with which he presented are not related to cardiac ischemia. EKG appears unchanged. Echocardiogram did not demonstrate any new wall motion abnormalities or change from prior. His dementia certainly complicates things. However, in the absence of objective findings of ischemia do not think he requires continued hospitalization. Reading his record, he did have similar episodes in the past and has undergone evaluation with stress testing. This could be considered in the outpatient setting. This point I would simply continue his dual anti-platelet therapy and beta-blockade. I think if he is ambulatory without recurrent symptoms he could be safely discharged with follow-up in the office of his primary area manager. (2) CAD (coronary artery disease): He had multivessel nonocclusive disease diagnosed in 2008. Seems to have done very well with medical therapy. Again, preserved LV systolic function without objective evidence of ischemia. According to his he generally does not have symptoms associated with activity. At this point continuation of aggressive secondary prevention is recommended. (3) Hyperlipidemia: Continue high-dose atorvastatin. Last LDL on our record was from April 2020. Twenty-seven. Could consider reduction in his atorvastatin given his advanced age. Present on Admission?: Yes (4) Near syncope: He has remote history of syncope and paroxysms of near syncope. He had previously undergone implantation of a loop recorder which reached end of service years ago. While he did describe dizziness as the cause of his evaluation yesterday, according to his , this is not appear to be a problem recently. No recent syncope. No arrhythmias identified on telemetry. History of Present Illness Reason for Consultation: Chest pain Requesting Physician: Yemi Attending Physician: Santosh Moraes DO History of Present Illness The patient is an 84-year-old gentleman with known history of coronary disease having previously suffered a non ST myocardial infarction in 2008. The patient was brought to the emergency room yesterday by EMS at the request of his because the patient had been complaining of chest, back and arm pain. According to the who provided the entire history, patient woke her up at 6:00 a.m. with symptoms of pain. Apparently 2 doses of sublingual nitroglycerin were administered at home for was described as right chest right arm and back discomfort. This nitroglycerin was likely and due to persistent nature of the symptoms EMS was contacted and the patient was brought to the hospital. There were of various reports of symptoms in the emergency room. According to the however, patient remained uncomfortable for several hours in the emergency room prior to final resolution of his symptoms upon arrival to the PCU. The patient could not provide any meaningful history. He has not seem to recall the events which occurred yesterday. He felt that his symptoms involved a sense of dizziness and left shoulder discomfort. According to the patient's he is an active individual who was able to perform some mild to moderate activity such as riding a lawnmower, at ascending stairs and walking without symptom. She does not recall him using nitroglycerin in several years. Allergies Allergy/AdvReac Type Severity Reaction Status Date / Time cinnamon Allergy Unknown Verified 09/10/20 08:45 Sulfa (Sulfonamide Allergy Unknown Verified 09/10/20 08:45 Antibiotics) Home Medications Medication Instructions Recorded Confirmed Type ascorbic acid (vitamin C) 500 mg 500 mg PO QAM cap 01/23/19 09/10/20 History capsule atorvastatin 80 mg tablet 80 mg PO HS #90 tab 01/23/19 09/10/20 History cholecalciferol (vitamin D3) 25 1,000 unit PO QAM cap 01/23/19 09/10/20 History mcg (1,000 unit) capsule coenzyme Q10 100 mg capsule 100 mg PO QA cap 01/23/19 09/10/20 History metoprolol succinate 25 mg 25 mg PO HS tab 01/23/19 09/10/20 History tablet,extended release 24 hr multivitamin 1 tab PO QAM 01/23/19 09/10/20 History vitamin E succinate 200 unit tablet 200 unit PO QAM tab 01/23/19 09/10/20 History aspirin [Aspir-81] 81 mg PO HS 09/10/20 09/10/20 History calcium carbonate [Calcium 600] 600 mg PO QAM 09/10/20 09/10/20 History clopidogrel [Plavix] 75 mg PO .Q2D@[facility] 09/10/20 09/10/20 History memantine 10 mg PO HS 09/10/20 09/10/20 History nitroglycerin [Nitrostat] 0.4 mg SUBLINGUAL UD 09/10/20 09/10/20 History omega 3-pwt-yod-fish oil [Fish Oil] 1 cap PO BID 09/10/20 09/10/20 History vitamin B complex 1 tab PO QAM 09/10/20 09/10/20 History Patient History Medical History Acute renal failure (05/01/14) Hyperlipidemia Hypertension Memory loss GA (myocardial infarction) Mild cognitive impairment No pertinent family history Surgical History No pertinent past surgical history Social History Smoking Status: Former smoker Smoking End Date: 1964; Second Hand Exposure: No; Do You Dip or Chew Tobacco: No; Tobacco Cessation Education Requested by Patient: No Hx Alcohol Use: No Hx Substance Use: No Preferred Language: Citizen Of [place] Communication Ability: Effective Medical Professionals Required: No Beliefs That Will Affect Care: None Current Living Situation: Spouse Other Information That Helps Us Care for You: No Feels Safe at Home: Yes Safety Concerns: Feels Safe At This Time Assistive Devices: None Assistive Devices Comment: not at this time Review of Systems Review of Systems: Unobtainable due to cognitive status Currently feeling well. No symptoms of dizziness or pain. Physical Exam Physical Exam: The patient is alert and oriented to person and place. He did not appear to be a reliable historian. Mood and affect appeared normal. He answered all questions appropriately. HEENT: Pupils are equal and reactive to light and accommodation. Extraocular movements are intact. The sclerae are anicteric. Neuro: Cranial nerves intact Neck: Patient's neck is supple. He has palpable carotid pulses bilaterally without bruits on auscultation. There is no evidence of jugular venous disten tion. The thyroid is not enlarged. Lungs: Clear to auscultation bilaterally. He has good air movement without use of accessory muscles. No rales wheezes or rhonchi. Cardiac: Heart demonstrates a regular rate and rhythm. Normal S1 and S2. No murmurs on examination. Pulses: The patient has palpable radial pulses bilaterally that are equal in intensity Extremities: There was no evidence of hypoperfusion. There is no cyanosis or clubbing. There is no edema. Skin: I did not appreciate any rashes on examination today. Results & Data ([facility]) Vital Signs (Past 12 Hours) Vital Signs Temp Pulse Pulse Resp BP Pulse Ox 09/11/20 11:11 37.1 C 69 19 153/74 H 95 09/11/20 08:11 36.7 C 19 113/70 95 09/11/20 03:36 36.9 C 69 18 126/72 93 09/11/20 01:03 70 Laboratory Results Abnormal Lab Results 09/10/20 09/10/20 09/10/20 10:33 16:01 18:29 WBC RBC Hgb Hct MCV MCH MCHC RDW Std Deviation RDW Coeff of Meryl Plt Count MPV Immature Gran % (Auto) Neut % (Auto) Lymph % (Auto) Wallace % (Auto) Eos % (Auto) Baso % (Auto) Neut # (Auto) Lymph # (Auto) Wallace # (Auto) Eos # (Auto) Baso # (Auto) Immature Gran # (Auto) APTT 63.9 H* PTT Ratio 2.4 Sodium Potassium Chloride Carbon Dioxide Anion Gap BUN Creatinine Est Cr Clr Drug Dosing Est GFR ( Amer) Est GFR (Non-Af Amer) BUN/Creatinine Ratio Glucose Calcium Troponin I < 0.015 SARS-CoV-2 (PCR) NEGATIVE 09/11/20 09/11/20 09/11/20 05:51 05:51 05:51 WBC 12.64 H RBC 4.67 L Hgb 15.0 Hct 41.1 L MCV 88.0 MCH 32.1 MCHC 36.5 H RDW Std Deviation 37.9 RDW Coeff of Meryl 11.8 Plt Count 219 MPV 9.0 Immature Gran % (Auto) 0.3 Neut % (Auto) 77.1 Lymph % (Auto) 10.9 Wallace % (Auto) 10.9 Eos % (Auto) 0.7 Baso % (Auto) 0.1 Neut # (Auto) 9.74 H Lymph # (Auto) 1.38 Wallace # (Auto) 1.38 H Eos # (Auto) 0.09 Baso # (Auto) 0.01 Immature Gran # (Auto) 0.04 H APTT 113.0 H* PTT Ratio 4.3 Sodium 128 L Potassium 3.8 Chloride 94 L Carbon Dioxide 25 Anion Gap 9.0 BUN 11 Creatinine 0.56 L Est Cr Clr Drug Dosing 93.4 Est GFR ( Amer) 110.9 Est GFR (Non-Af Amer) 95.7 BUN/Creatinine Ratio 19.8 Glucose 111 H Calcium 9.1 Troponin I SARS-CoV-2 (PCR) Diagnostic Findings Cardiac catheterization performed 2008, 40% left main, 60% proximal LAD, 80% ostial D2, 50% ostial circumflex, diffuse nonocclusive RCA disease. Chest CTA performed in the emergency room yesterday did not reveal any evidence of a pulmonary embolus. 7 mm lung nodule which will require follow-up CT in 3 months. No other acute disease. Echocardiogram performed this morning revealed preserved LV systolic function with mild LVH. No regional wall motion abnormalities. No significant valvular heart disease. Density room and again this morning sinus rhythm possible old inferior myocardial infarction, unchanged from EKG obtained in 2013. PG Care Time/CCT Total # of Minutes Spent Total Time Spent with Patient: Total time spent is greater than 50% in coordination of care (as documented) at patient's floor/unit and/or counseling patient: Coding Level of Care Code 57391 Initial Inpt Care Lvl 3 Diagnoses Chest pain R07.9 Chest pain type: unspecified CAD (coronary artery disease) I25.10 Hyperlipidemia E78.5 Near syncope R55 (1) Chest pain Chest pain type: unspecified Qualified Code(s): R07.9 - Chest pain, unspecified
[2020-09-11 15:30] LABS: Appearance Urine Clear (Clear); Bilirubin Urine Negative (Negative); Blood Urine Negative (Negative); Color Urine Yellow; Glucose Urine UA Negative (Negative); Ketones Urine Negative (Negative); Leukocyte Esterase Urine Negative (Negative); Nitrite Urine Negative (Negative); Protein Urine Negative (Negative); Specific Gravity Urine 1.016 (1.000-1.030); Urobilinogen Urine Negative (Negative); pH Urine 6.5 (4.5-7.5)
--- NOTE | 2020-09-11 16:32 | Electrocardiogram Report ---
Test Reason : Blood Pressure : / mmHG Vent. Rate : 069 BPM Atrial Rate : 069 BPM P-R Int : 198 ms QRS Dur : 100 ms QT Int : 444 ms P-R-T Axes : 049 010 066 degrees QTc Int : 475 ms Normal sinus rhythm possible Inferior infarct (cited on or before 20-MAR-2013) Abnormal ECG When compared with ECG of 10-SEP-2020 07:59, No significant change was found Confirmed by Jason Lema [id number] on 09/11/2020 4:32:06 PM Referred By: REFERRED SELF Confirmed By:Rodrick Lema
--- NOTE | 2020-09-11 17:25 | Discharge Summary ---
Date of Service September 11, 2020 Admission HPI Per Admitting Provider Mr Mart is an 84-year-old male with history of CAD s/p Non-ST Elevation [place] 2008, Hypertension, Dyslipidemia, Bradycardia, Prior Traumatic Syncope, and Mild Cognitive Impairment who presents to the ER this morning after waking with left- sided chest pain beginning at about 6:00 a.m. and lasting for at least half an hour although he and his are not very good historians. Patient's states that he appeared pale at the time and also complained of some back pain. He denies any radiation of pain down his arms or elsewhere. No other associated symptoms. Specifically denies any associated nausea, vomiting, or dyspnea. They tried Nitrolingual spray (that in 2019) x2. It took about half an hour for the EMS to arrive. Patient is currently being seen in . He specifically denies any back or chest pain at this time. He denies any shortness of breath. He has not had any orthopnea or PND. No palpitations, syncope, or near syncope. He has not had any exertional chest pain in past weeks nor has he had any drop-off in his exertional tolerance. He otherwise complains of swelling of his left forearm since having blood drawn earlier today. Apparently the dressing was very tight. His initial troponin I is undetectable at less than 0.015 ng/ml. His D-dimer is elevated. Patient is had the following Cardiac Studies: Stress Cardiolite 04/09/2013: -- Negative for myocardial ischemia at 100% maximum predicted heart rate. -- LVEF was normal, normal wall motion. CARDIAC CATHETERIZATION 2008: 1. LVEF 60%. 2. LMCA- 40% stenosis. 3. LAD- 60% proximal LAD stenosis. 4. D2- 80% ostial stenosis. 5. LCx- 50% ostial stenosis. 6. RCA- Nonocclusive disease throughout the vessel with up to 30%-40% narrowings. Principal Diagnosis Chest painno [place], possible angina. Discharge Exam General he is awake and alert pleasant no distress. HEENT normocephalic atraumatic mucous membranes moist. Breathing unlabored no accessory muscle use good effort. Skin shows no rashes no pallor or icterus. Neuro without any focal deficits. Discharge Data Allergies Allergy/AdvReac Type Severity Reaction Status Date / Time cinnamon Allergy Unknown Verified 09/10/20 08:45 Sulfa (Sulfonamide Allergy Unknown Verified 09/10/20 08:45 Antibiotics) Consultations 09/10/20 10:16 ED Decision to Admit Stat 09/10/20 10:18 ED Decision to Admit Stat 09/10/20 15:46 Consult Cardiology Routine Ordered Studies 09/10/20 08:47 CT angio chest PE protocol Stat Hospital Course (1) Chest pain: Fortunately KS was ruled out. He was seen by cardiology, we both agree that stress testing would be warrantedespecially given the patient's known history of at the time nonobstructive coronary disease. He is stable for home, outpatient stress test this coming week. (2) Hyponatremia: Initially I was suspicious for SIADH as it related to his lung nodule, but his labs seem to show an overall hypotonic state. Further follow-up as an outpatient, question his nutritional status (3) Lung nodule: Small but somewhat concerning in its appearance. Outpatient follow-up, unlikely pulmonary evaluation. Total Time Total Time Spent Total Time Spent (In Minutes): <30 Discharge Plan Discharge Items Patient Disposition: Home - Self-Care Reason For Visit: CHEST PAIN Discharge Diagnosis: chest pain Activity: Resume your previous activity Non-emergency contact: Primary Care Provider and Table Games Dealer Call non-emergency contact if: you have any medication questions, your symptoms worsen and you have a fever Follow-up/Referrals: Oc Torres DO [Physician] - Yunier Shoemaker MD [Primary Care Provider] - Diet: Heart Healthy Addtl Attending Provider Instructions: Mr. Mart, You were admitted to [facility] for evaluation of chest pain that you had yesterday morning while at home. While here, your heart enzymes, ekg, and heart ultrasound were checked. There were no new concerning changes. The batch unit treater here has also evaluated you. Your Plavix was increased from 75 mg every other day to 75 mg daily. It has been refilled and sent to your pharmacy. No changes were made to your other medications. It is very important that you continue the daily atorvastatin 80mg. I have refilled your nitroglycerin (to be used only during episodes of severe chest pain) and sent it to your pharmacy at [facility]. Please see your batch unit treater (Dr. Torres) and your primary care doctor (Dr. Poli nunn) within 1 week. You will need an outpatient stress test. The hospital staff will call to make these appointments, but if you do not hear back by Sunday, please call to confirm these appointments. Your sodium level during this admission was low. There were some blood and urine studies collected while here to evaluate this. The results are pending. Discuss them with your primary care doctor when they result. Your chest CT scanned had shown a 7 millimeter lung nodule that was not there in 2009. Please follow up with your primary doctor regarding this. Consider seeing outpatient pulmonology and a [address] up [address]. Return precautions: If you develop any new or worsening symptoms including fever, chills, sweats, chest pain, chest pressure, difficulty breathing, uncontrolled nausea/vomiting, rash, wheezing, passing out or nearly passing out, bleeding, black/bloody bowel movements, or other new or concerning symptoms please call your primary care physician, or call 911 for re-evaluation in the emergency department if you are very concerned. Specifically, watch out for chest pain that does not go away after nitroglycerin, as well as chest pain that is accompanied by vomiting, jaw numbness, or tingling/radiating pain down your arms. Pending Studies at Discharge: Yes Studies:: UA, urine osmol and serum osmol Stand-Alone Forms: My [facility] Field Squared, Smoking Cessation Medications and DC Order Prescriptions: New clopidogrel 75 mg Tablet 75 mg PO QAM 30 Days Qty: 30 RF: 1 nitroglycerin [Nitrostat] 0.4 mg Tablet, Sublingual 0.4 mg sublingual UD 30 Days Qty: 15 RF: 1 Continued atorvastatin 80 mg tablet 80 mg PO HS Qty: 90 RF: 0 coenzyme Q10 100 mg capsule 100 mg PO QAM RF: 0 metoprolol succinate 25 mg tablet extended release 24 hr 25 mg PO HS RF: 0 multivitamin [Daily Multi-Vitamin] tablet 1 tab PO QAM RF: 0 ascorbic acid (vitamin C) 500 mg capsule 500 mg PO QAM RF: 0 cholecalciferol (vitamin D3) 1,000 unit capsule 1,000 unit PO QAM RF: 0 vitamin E succinate 200 unit tablet 200 unit PO QAM RF: 0 aspirin 81 mg Tablet,Delayed Release (Dr/Ec) 81 mg PO HS RF: 0 calcium carbonate [Calcium 600] 600 mg calcium (1,500 mg) Tablet 600 mg PO QAM RF: 0 vitamin B complex Tablet 1 tab PO QAM RF: 0 omega 6-dqz-fmf-fish oil [Fish Oil] 1,200 (144-216) mg Capsule 1 cap PO BID RF: 0 memantine 10 mg tablet 10 mg PO HS RF: 0 Discontinued clopidogrel [Plavix] 75 mg Tablet 75 mg PO .Q2D@QAM RF: 0 Discharge Orders: Discharge Order (Routine); Ordered 09/11/20 Ordered By: Leonardo Esquivel Admission Data Admit Date/Time: 09/10/20 12:08 Attending Provider: Santosh Moraes Admit Provider: Marty Bragg Primary Care Provider: Yunier Shoemaker Other Providers: Gaurang Higgins ; Efren Spicer ; Oc Torres Other Interventions: Discharge Summary Assessment (RN) Last Done: 09/11/20 16:42 Coding Level of Care Code D/C Day Management <30 mins Diagnoses Chest pain R07.9 Chest pain type: unspecified Hyponatremia E87.1 Lung nodule R91.1
== END 2020-09-11 17:55 | disposition home or self-care (01) ==
LOC: ED 07:54 → INTOOBSV 12:08 → SUATTDRO 12:08 → 2S 12:08

== ENCOUNTER 2020-09-11 21:50 | Observation (INO) ==
[2020-09-11 22:29] LABS: Basophils # (auto) 0.01 K/uL (0-0.2); Basophils % (auto) 0.1 %; Eosinophils # (auto) 0.02 K/uL (0-0.5); Eosinophils % (auto) 0.1 %; Hematocrit (blood only) 43.1 % (42-52); Hemoglobin 15.8 g/dL (14.0-18.0); Immature Granulocytes # (auto) 0.06 K/uL (0.00-0.02); Immature Granulocytes % (auto) 0.4 %; Lymphocytes # (auto) 0.95 K/uL (1.2-3.4); Lymphocytes % (auto) 6.1 %; Mean Corpuscular Hemoglobin 32.1 pg (25-34); Mean Corpuscular Hgb Conc 36.7 g/dL (32-36); Mean Corpuscular Volume 87.6 fL (80-100); Mean Platelet Volume 9.1 fL (7.4-10.4); Monocytes % (auto) 7.1 %; Neutrophils # (auto) 13.35 K/uL (1.4-6.5); Neutrophils % (auto) 86.2 %; Platelet Count 247 K/uL (130-400); RDW Coefficient of Variation 11.7 % (11.5-14.5); RDW Standard Deviation 37.5 fL (36.4-46.3); Red Blood Count 4.92 M/uL (4.7-6.1); White Blood Count 15.49 K/uL (4.8-10.8)
[2020-09-11 22:46] LABS: Alanine Aminotransferase 31 U/L (12-78); Albumin Level 3.6 gm/dl (3.4-5.0); Aspartate Aminotransferase 34 U/L (15-37); BUN Creatinine Ratio 23.2 (10-20); Blood Urea Nitrogen 17 mg/dl (7-18); Calcium 8.9 mg/dl (8.5-10.1); Carbon Dioxide 25 mmol/L (21-32); Chloride 88 mmol/L (98-107); Creatinine Clr Calc Pharmacy 72.7 ml/min; Est GFR (Non-African American) 86.3 ml/min; Glucose 132 mg/dl (70-99); Lipase 228 U/L (73-393); Sodium 122 mmol/L (136-145)
[2020-09-11 22:51] LABS: Alkaline Phosphatase 96 U/L (45-117); Bilirubin,Total 1.4 mg/dl (0.2-1); Globulin 3.5 gm/dl (2.5-4.0); Total Protein 7.1 gm/dl (6.4-8.2); Troponin I < 0.015 ng/ml (0-0.045)
[2020-09-11] MEDS ORDERED: ACETAMINOPHEN 1,000 MG/100 ML VIAL IV STA (23:14)
--- NOTE | 2020-09-11 23:32 | Emergency Department Note ---
History of Present Illness General Chief complaint: Cardiac Assessment Stated complaint: PAIN IN SIDE AND DOWN LEG Time Seen by Provider: 09/11/20 22:06 Source: patient Mode of arrival: ambulatory Limitations: no limitations History of Present Illness Provider complaint: Right-sided chest and upper abdominal pain Onset (ago): hour(s) Location: chest and abdomen Severity: moderate Pain Consistency: + constant Maximum Pain Intensity: 8 Current Pain Intensity: 8 Quality: + constant Relieved By: + none Exacerbated By: + none Associated symptoms: + denies other symptoms Treatments prior to arrival: none This is an 84-year-old male presents the emergency department with his at bedside due to concern for right-sided chest pain and upper abdominal pain. Of note patient had been admitted here as part of a cardiac evaluation and was just discharged earlier today. The states she was told by nursing staff who brought him down and assisted him into the car that he had had "a spell" of chest pain prior to discharge, was reevaluated by the quarter doper and felt safe for discharge home. She states since she picked him up at the hospital and took him home he has had constant right-sided chest and abdominal pain. Patient's does provide better history than the patient himself. She states several medication changes were made during his stay, he was evaluated by cardiology, and it was felt that his chest pain was not related to his heart. She states after discussing his symptoms with a friend she is concerned it may be related to his gallbladder and brought him in for additional evaluation. According to t he discharge summary, patient is scheduled for a follow-up stress test by cardiology. He did have a CAT scan of the chest during his initial evaluation in the emergency department. Patient denies shortness of breath, nausea/vomiting, fever/chills, or change in bowel movements. Pt seen during a time of high acuity and national emergency pandemic while wearing PPE. Home Medications Medication Instructions Recorded Confirmed Type ascorbic acid (vitamin C) 500 mg 500 mg PO QAM cap 01/23/19 09/11/20 History capsule atorvastatin 80 mg tablet 80 mg PO HS #90 tab 01/23/19 09/11/20 History cholecalciferol (vitamin D3) 25 1,000 unit PO QAM cap 01/23/19 09/11/20 History mcg (1,000 unit) capsule coenzyme Q10 100 mg capsule 100 mg PO QAM cap 01/23/19 09/11/20 History metoprolol succinate 25 mg 25 mg PO HS tab 01/23/19 09/11/20 History tablet,extended release 24 hr multivitamin 1 tab PO QAM 01/23/19 09/11/20 History vitamin E succinate 200 unit tablet 200 unit PO QAM tab 01/23/19 09/11/20 History aspirin 81 mg PO HS 09/10/20 09/11/20 History calcium carbonate [Calcium 600] 600 mg PO QAM 09/10/20 09/11/20 History memantine 10 mg PO HS 09/10/20 09/11/20 History omega 4-nsi-qhy-fish oil [Fish Oil] 1 cap PO BID 09/10/20 09/11/20 History vitamin B complex 1 tab PO QAM 09/10/20 09/11/20 History clopidogrel 75 mg PO QAM 30 Days #30 tab 09/11/20 09/11/20 Rx nitroglycerin [Nitrostat] 0.4 mg SUBLINGUAL UD 30 Days #15 09/11/20 09/11/20 Rx tab Allergies Allergy/AdvReac Type Severity Reaction Status Date / Time cinnamon Allergy Unknown Unknown Verified 09/11/20 23:01 Sulfa (Sulfonamide Allergy Unknown Unknown Verified 09/11/20 23:01 Antibiotics) Past Med/Surg History Medical History Acute renal failure (05/01/14) Hyperlipidemia Hypertension Memory loss [place] (myocardial infarction) Mild cognitive impairment No pertinent family history Surgical History No pertinent past surgical history Social History Smoking Status: Former smoker Second Hand Exposure: No; Hx Alcohol Use: No Hx Substance Use: No Preferred Language: Thai Communication Ability: Effective Seed Collector Required: No Beliefs That Will Affect Care: None marital status: Current Living Situation: Spouse Feels Safe at Home: Yes Assistive Devices: None Review of Systems See HPI for pertinent positives & negatives. Unobtainable due to cognitive status Physical Exam Vital Signs Vital Signs - 24 hr 09/12/20 02:00 09/12/20 02:01 09/12/20 02:03 Pulse Rate 71 67 65 Pulse Rate from SpO2 Sensor 71 66 65 Respiratory Rate 23 22 20 Blood Pressure 174/104 H 166/84 H Blood Pressure Mean 127 111 Pulse Oximetry 96 94 96 09/12/20 02:10 09/12/20 02:20 09/12/20 02:21 Pulse Rate 65 69 66 Pulse Rate from SpO2 Sensor 65 68 65 Respiratory Rate 21 22 22 Blood Pressure 149/101 H 181/108 H 160/93 H Blood Pressure Mean 117 132 115 Pulse Oximetry 95 95 95 09/12/20 02:25 09/12/20 02:30 Pulse Rate 66 66 Pulse Rate from SpO2 Sensor 66 66 Respiratory Rate 22 22 Blood Pressure 160/93 H 175/96 H Blood Pressure Mean 115 122 Pulse Oximetry 95 95 GENERAL: alert, well appearing, well nourished, no distress, non-toxic EYE EXAM: normal conjunctiva, PERRL and EOM's grossly intact OROPHARYNX: no exudate, no erythema, lips, buccal mucosa, and tongue normal and mucous membranes are moist NECK: supple, no nuchal rigidity, no adenopathy, non-tender LUNGS: Clear to auscultation. Normal chest wall mechanics, no w/r/r HEART: no murmurs, S1 normal and S2 normal ABDOMEN: abdomen soft, non-tender, normo-active bowel sounds, no masses, no rebound or guarding. BACK: Back is symmetrical on inspection and there is no deformity, no midline tenderness, no CVA tenderness. SKIN: no rashes and no bruising UPPER EXTREMITIES: upper extremities are grossly normal. FROM, nml pulses b/l. LOWER EXTREMITIES: No pitting edema. FROM, nml pulses b/l. NEURO EXAM: Normal sensorium, cranial nerves II-XII grossly intact, normal speech, no gross weakness of arms, no gross weakness of legs. Gross sensation intact. Course Administered Medications Acetaminophen (Acetaminophen 325 Mg Tab) 650 mg PO Q4H PRN PRN Reason: Pain or Fever Stop: 10/12/20 03:53 Last Admin: 09/12/20 11:08 Dose: 650 mg Documented by: [id number] Ascorbic Acid (Ascorbic Acid 500 Mg Tab) 500 mg PO [facility] Stop: 10/12/20 08:59 Last Admin: 09/12/20 08:33 Dose: 500 mg Documented by: [id number] Aspirin (Aspirin 81 Mg Ectab) 81 mg PO [facility] Stop: 10/12/20 20:59 Last Admin: 09/12/20 20:13 Dose: 81 mg Documented by: [id number] Atorvastatin Calcium (Atorvastatin 40 Mg Tab) 80 mg PO HS [facility] Stop: 10/12/20 20:59 Last Admin: 09/12/20 20:13 Dose: 80 mg Documented by: [id number] Clopidogrel Bisulfate (Clopidogrel Bisulfate 75 Mg Tab) 75 mg PO QAM [facility] Stop: 10/12/20 08:59 Last Admin: 09/12/20 08:33 Dose: 75 mg Documented by: [id number] Diclofenac Sodium (Diclofenac Sod 1% Gel 100 Gm Tube) 2 gm EXT Q6H PRN PRN Reason: pain Stop: 10/12/20 14:38 Last Admin: 09/12/20 16:16 Dose: 2 gm Documented by: [id number] Fish Oil ([place]-3 (Purified Fish Oil) 1 Gm Cap) 1 gm PO BID [facility] Stop: 10/12/20 08:59 Last Admin: 09/12/20 20:14 Dose: 1 gm Documented by: [id number] Admin: 09/12/20 08:34 Dose: 1 gm Documented by: [id number] Heparin Sodium (Porcine) (Heparin Sod 5,000 Unit/0.5 Ml Vial) 5,000 units SQ Q12 [facility] Stop: 10/12/20 08:59 Last Admin: 09/12/20 20:14 Dose: 5,000 units Documented by: [id number] Admin: 09/12/20 08:34 Dose: 5,000 units Documented by: [id number] Lidocaine (Lidocaine 5% 1 Patch) 1 patch TD DAILY [facility] Stop: 10/12/20 08:59 Last Admin: 09/12/20 08:35 Dose: 1 patch Documented by: [id number] Memantine (Memantine Hcl 10 Mg Tab) 10 mg PO [facility] Stop: 10/12/20 20:59 Last Admin: 09/12/20 20:15 Dose: 10 mg Documented by: [id number] Metoprolol Succinate (Metoprolol Succ 25mg Ext Rel Tab) 25 mg PO HS [facility] Stop: 10/12/20 20:59 Last Admin: 09/12/20 20:15 Dose: 25 mg Documented by: [id number] Miscellaneous (Remove Lidoderm Patch) 1 ea N/A DAILY@2100 [facility] Stop: 10/12/20 20:59 Last Admin: 09/12/20 20:15 Dose: 1 ea Documented by: [id number] [facility]ivitamins ([facility]itamin Tab) [facility] Stop: 10/12/20 08:59 Last Admin: 09/12/20 08:33 Dose: 1 tab Documented by: [id number] Multivitamins/Minerals (Calcium 600mg + Vit D 400 Iu Tab) 1 tab PO QAM [facility] Stop: 10/12/20 08:59 Last Admin: 09/12/20 08:33 Dose: 1 tab Documented by: [id number] Vitamin B Complex (Vitamin B Complex Tab) [facility] Stop: 10/12/20 08:59 Last Admin: 09/12/20 08:34 Dose: 1 tab Documented by: [id number] Vitamin D (Cholecalciferol 1,000 Units 25 Mcg Tab) 1,000 units PO [facility] Stop: 10/12/20 08:59 Last Admin: 09/12/20 08:33 Dose: 1,000 units Documented by: [id number] Vitamin E (Tocopheryl, Dl-Alpha 100 Units Cap) 200 units PO [facility] Stop: 10/12/20 08:59 Last Admin: 09/12/20 08:34 Dose: 200 units Documented by: [id number] Discontinued Medications Furosemide (Furosemide 40 Mg/4 Ml Vial) 20 mg IV NOW STA Stop: 09/12/20 02:36 Last Admin: 09/12/20 03:22 Dose: 20 mg Documented by: [id number] Acetaminophen (Ofirmev) 1,000 mg in 100 mls @ 400 mls/hr IV NOW STA Stop: 09/11/20 23:28 Last Infusion: 09/12/20 00:01 Dose: 0 mls/hr Documented by: [id number] Admin: 09/11/20 23:21 Dose: 400 mls/hr Documented by: [id number] Labetalol HCl (Labetalol Hcl Iv 5 Mg/Ml 20ml) 5 mg IV NOW STA Stop: 09/12/20 01:49 Last Admin: 09/12/20 01:58 Dose: 5 mg Documented by: [id number] Cosigned by: [id number] Potassium Chloride (Potassium Chloride Crtab 20 Meq Tabcr) 40 meq PO NOW STA Stop: 09/12/20 16:13 Last Admin: 09/12/20 16:18 Dose: 40 meq Documented by: [id number] Sodium Chloride (Sodium Chloride 1 Gm Tablet) [facility] Stop: 10/12/20 08:59 Last Admin: 09/12/20 08:34 Dose: 2 gm Documented by: [id number] Medical Decision Making Differential Diagnosis Differential diagnoses includes but is not limited to gastritis, peptic ulcer disease, GERD, gallbladder disease, pancreatitis, small bowel obstruction, acute coronary syndrome, pericarditis, ischemic bowel, irritable bowel disease, irritable bowel syndrome, appendicitis, diverticulitis, malignancy, hernia, urinary tract infection, torsion, [/ectopic (if female)], perforation, trauma, infectious. Medical Records Attestation: I reviewed the patient's medical records. Home Medications Current Medication List: was personally reviewed by me Laboratory Data Attestation: I reviewed the patient's lab results. Result diagrams: 09/11/20 22:13 09/12/20 14:44 Lab Results 09/11/20 09/11/20 Range/Units 22:13 22:13 WBC 15.49 H (4.8-10.8) K/uL RBC 4.92 (4.7-6.1) M/uL Hgb 15.8 (14.0-18.0) g/dL Hct 43.1 (42-52) % MCV 87.6 (80-100) fL MCH 32.1 (25-34) pg MCHC 36.7 H (32-36) g/dL RDW Std Deviation 37.5 (36.4-46.3) fL RDW Coeff of Meryl 11.7 (11.5-14.5) % Plt Count 247 (130-400) K/uL MPV 9.1 (7.4-10.4) fL Immature Gran % (Auto) 0.4 % Neut % (Auto) 86.2 % Lymph % (Auto) 6.1 % [place] % (Auto) 7.1 % Eos % (Auto) 0.1 % Baso % (Auto) 0.1 % Neut # (Auto) 13.35 H (1.4-6.5) K/uL Lymph # (Auto) 0.95 L (1.2-3.4) K/uL [place] # (Auto) 1.10 H (0.11-0.59) K/uL Eos # (Auto) 0.02 (0-0.5) K/uL Baso # (Auto) 0.01 (0-0.2) K/uL Immature Gran # (Auto) 0.06 H (0.00-0.02) K/uL Sodium 122 L (136-145) mmol/L Potassium 4.0 (3.5-5.1) mmol/L Chloride 88 L (98-107) mmol/L Carbon Dioxide 25 (21-32) mmol/L Anion Gap 9.0 (3-11) BUN 17 D (7-18) mg/dl Creatinine 0.72 (0.6-1.4) mg/dl Est Cr Clr Drug Dosing 72.7 ml/min Est GFR ( Amer) 100.0 ml/min Est GFR (Non-Af Amer) 86.3 ml/min BUN/Creatinine Ratio 23.2 H (10-20) Glucose 132 H (70-99) mg/dl Calcium 8.9 (8.5-10.1) mg/dl Total Bilirubin 1.4 H (0.2-1) mg/dl AST 34 (15-37) U/L ALT 31 (12-78) U/L Alkaline Phosphatase 96 (45-117) U/L Troponin I < 0.015 (0-0.045) ng/ml Total Protein 7.1 (6.4-8.2) gm/dl Albumin 3.6 (3.4-5.0) gm/dl Globulin 3.5 (2.5-4.0) gm/dl Albumin/Globulin Ratio 1.0 (0.9-2) Lipase 228 (73-393) U/L Imaging Data My Impression: X-ray: I interpreted the following studies. Chest: A single view study of the chest was reviewed and was negative for cardiomegaly, focal infiltrate, effusion, pulmonary edema, or wide mediastinum. Radiologist's Impression: Ultrasound right upper quadrant: No evidence of cholelithiasis or acute cholecystitis. Small amount of sludge in the gallbladder. Normal sonographic appearance of the liver and right kidney. Limited evaluation of the pancreas without evident abnormality. Radiologist: Flaquito Birch MD ECG Data Attestation: I personally reviewed and interpreted this ECG as follows: Indication: + chest pain Rate (beats per minute): 83 Rhythm: + normal sinus ECG Intervals/blocks: + Normal QRS and + Normal QT ECG Picher: + Normal ECG Findings: + Q waves (III, aVF) MDM Narrative This is an 84-year-old male brought to the emergency department by his daughter due to concern for recurrent chest pain/RUQ pain. Pt recently admitted and underwent cardiac testing here and was discharged just earlier today. stated that just prior to discharge he had a "spell" and had recurrent pain which did not let up even after taking him home. She was concerned for possible alternative diagnosis of his pain including biliary colic and [facility]. Ultrasound of the right upper quadrant was negative, labs reassuring including repeat troponin and unchanged repeat EKG. Patient was noted to have a lower sodium compared to prior although he had been hyponatremic during his admission. declined that he was drinking additional water. Patient had been evaluated for SIADH. Due to concern for recurrent pain in a patient who had a planned outpatient stress test and risk of coronary artery disease, worsening hyponatremia, case discussed with hospitalist for additional evaluation and management. Patient was hemodynamically stable throughout. Patient did have prior CT of the chest which was unremarkable and I do not suspect acute PE, vascular etiology, or occult infection. An order was placed for continuous cardiac monitoring. The monitor shows a rate of __68_ with normal sinus_ rhythm. Impression & Plan Atypical chest pain, Hyponatremia Discharge Plan Visit Data Chief Complaint: Cardiac Assessment Stated Complaint: PAIN IN SIDE AND DOWN LEG ED Provider: Ladonna Saavedra Discharge Problem: Atypical chest pain, Hyponatremia Patient Disposition: Admitted As Inpatient Discharge Instructions Interventions: ED Discharge Assessment Last Done: 09/12/20 03:37
[2020-09-12] MEDS ORDERED: LABETALOL HCL IV 5 MG/ML 20ML IV STA (01:48)
[2020-09-12] MEDS ORDERED: FUROSEMIDE 40 MG/4 ML VIAL IV STA (02:35)
--- NOTE | 2020-09-12 02:35 | History & Physical Report ---
Date of Service September 12, 2020 Assessment & Plan (1) Hyponatremia: Sodium decreased from 128 earlier in the day prior to discharge, to 122 this evening. Serum osmolality 259, urine osmolality 329. Upon questioning, patient reports that he had a 10 ounce glass of water after being discharged, and was trying to say he had drank additional water to that, however his overrode him and said that he did not. I suspect his water intake is more than what his knows. Fluid restrict 1500 mL Sodium chloride 2 g p.o. every morning Furosemide 20 mg IV x1 now Follow serial laboratories Present on Admission?: Yes (2) Polydipsia: As above fluid restrict 1500 cc Present on Admission?: Yes (3) CAD (coronary artery disease): CAD/hypertension- Underwent full cardiac work-up in his recent admission, with negative findings Continue aspirin, clopidogrel and metoprolol succinate Present on Admission?: Yes (4) Hyperlipidemia: Continue atorvastatin 80 mg at bedtime Hold fish oil Present on Admission?: Yes (5) Hypertension: See above Present on Admission?: Yes (6) Mild cognitive impairment: Continue memantine and vitamin D I am more inclined to believe his version of water intake than what his thinks he drinks Present on Admission?: Yes (7) Lung nodule: Follow per protocol Present on Admission?: Yes History of Present Illness Chief Complaint: The patient presents to the emergency department with his , with complaint of right lateral chest wall pain after being discharged from the hospital earlier in the day today. Primary Care Provider: Yunier Shoemkaer MD The patient is an 89-year-old male with a past medical history including lung nodule, hyponatremia, CAD, hyperlipidemia, hypertension, and mild cognitive impairment. He was discharged earlier in the day, that needed to be after being in hospital from 09/10-09/11/2020. He did undergo cardiac work-up including echocardiogram and consultation by cardiology, and plan was to follow-up with cardiology in outpatient setting for possible stress test. Work-up in the emergency department include the following significant lab abnormalities: Sodium worsened from 128 earlier in the day to 122, serum osmolality 259 and urine osmolality was 329. Allergies Allergy/AdvReac Type Severity Reaction Status Date / Time cinnamon Allergy Unknown Unknown Verified 09/11/20 23:01 Sulfa (Sulfonamide Allergy Unknown Unknown Verified 09/11/20 23:01 Antibiotics) Home Medications Medication Instructions Recorded Confirmed Type ascorbic acid (vitamin C) 500 mg 500 mg PO QAM cap 01/23/19 09/11/20 History capsule atorvastatin 80 mg tablet 80 mg PO HS #90 tab 01/23/19 09/11/20 History cholecalciferol (vitamin D3) 25 1,000 unit PO QAM cap 01/23/19 09/11/20 History mcg (1,000 unit) capsule coenzyme Q10 100 mg capsule 100 mg PO QAM cap 01/23/19 09/11/20 History metoprolol succinate 25 mg 25 mg PO HS tab 01/23/19 09/11/20 History tablet,extended release 24 hr multivitamin 1 tab PO QAM 01/23/19 09/11/20 History vitamin E succinate 200 unit tablet 200 unit PO QAM tab 01/23/19 09/11/20 History aspirin 81 mg PO HS 09/10/20 09/11/20 History calcium carbonate [Calcium 600] 600 mg PO QAM 09/10/20 09/11/20 History memantine 10 mg PO HS 09/10/20 09/11/20 History omega 8-piz-szp-fish oil [Fish Oil] 1 cap PO BID 09/10/20 09/11/20 History vitamin B complex 1 tab PO QAM 09/10/20 09/11/20 History clopidogrel 75 mg PO QAM 30 Days #30 tab 09/11/20 09/11/20 Rx nitroglycerin [Nitrostat] 0.4 mg SUBLINGUAL UD 30 Days #15 09/11/20 09/11/20 Rx tab Past Med/Surg History Medical History Acute renal failure (05/01/14) Hyperlipidemia Hypertension Memory loss OR (myocardial infarction) Mild cognitive impairment No pertinent family history Surgical History No pertinent past surgical history Social History Smoking Status: Never smoker Second Hand Exposure: No; Hx Alcohol Use: No Hx Substance Use: No Preferred Language: Slovenian Communication Ability: Effective [employer] Phot[employer] Detailer Required: No Beliefs That Will Affect Care: None Current Living Situation: Spouse Feels Safe at Home: Yes Assistive Devices: Glasses Review of Systems Review of Systems: The patient denies palpitations, shortness of breath, dyspnea on exertion, cough, lower extremity swelling, sore throat, fevers, chills, sweats, weight change, fatigue, nausea, vomiting, diarrhea , constipation, abdominal pain, pelvic pain, blood in urine or stool, dysuria, urinary frequency or urgency, lightheadedness, dizziness, headache, loss of consciousness, rash, abnormal bruising or bleeding, focal or generalized weakness, numbness or tingling in arms or legs, generalized arthralgias or myalgias, back or neck pain, or night sweats. The review of systems is otherwise negative other than for that already noted above, and at least 10 systems have been reviewed. Physical Exam Physical Exam: The patient is awake, alert and oriented 3, well developed and well nourished, normocephalic and atraumatic, lying in bed and in no acute distress. HEENT--PERRL, EOMI, mucous membranes and oropharynx moist Neck--supple. No JVD. No bruits. Thyroid normal, trachea midline, no adenopathy. Heart--normal S1 and S2. No murmurs, rubs or gallops. Lungs/chest wall--clear bilaterally, no respiratory distress, no accessory muscle use. Easily reproducible pain over lower right posterior ribs. Abdomen--normal bowel sounds and soft. Nontender. Nondistended, no hernias or masses, no organomegaly. Extremities--no cyanosis or clubbing. No edema. Dermatologic--scattered ecchymoses Neurologic--cranial nerves II through XII grossly intact. Rheumatologic--normal range of motion. Psychiatric--normal affect. Results & Data Results & Data ([facility]) Vital Signs (Past 12 Hours) Vital Signs Temp Pulse Resp BP Pulse Ox 09/12/20 02:30 66 22 175/96 H 95 09/12/20 02:25 66 22 160/93 H 95 09/12/20 02:21 66 22 160/93 H 95 09/12/20 02:20 69 22 181/108 H 95 09/12/20 02:10 65 21 149/101 H 95 09/12/20 02:03 65 20 96 09/12/20 02:01 67 22 166/84 H 94 09/12/20 02:00 71 23 174/104 H 96 09/12/20 01:45 195/99 H 96 09/12/20 01:30 191/95 H 96 09/12/20 01:25 198/100 H 96 09/12/20 01:24 96 09/12/20 00:45 68 17 188/98 H 94 09/12/20 00:31 67 22 95 09/12/20 00:30 68 23 92 09/12/20 00:15 67 23 186/93 H 94 09/12/20 00:00 67 20 188/95 H 94 09/11/20 23:45 68 24 199/114 H 95 09/11/20 23:30 68 20 96 09/11/20 23:25 68 22 191/117 H 96 09/11/20 23:16 68 18 96 09/11/20 23:00 71 20 193/99 H 95 09/11/20 22:45 81 23 199/96 H 95 09/11/20 22:30 74 19 197/98 H 95 09/11/20 22:16 75 20 95 09/11/20 22:15 76 21 189/96 H 92 09/11/20 22:08 77 23 185/98 H 95 09/11/20 22:07 77 23 95 09/11/20 22:05 76 18 203/99 H 95 09/11/20 22:02 74 98 09/11/20 21:52 98.1 F 93 H 93 H 177/97 H 95 Laboratory Results Laboratory Results WBC 15.49 K/uL (4.8-10.8) H 09/11/20 22:13 RBC 4.92 M/uL (4.7-6.1) 09/11/20 22:13 Hgb 15.8 g/dL (14.0-18.0) 09/11/20 22:13 Hct 43.1 % (42-52) 09/11/20 22:13 MCV 87.6 fL (80-100) 09/11/20 22:13 MCH 32.1 pg (25-34) 09/11/20 22:13 MCHC 36.7 g/dL (32-36) H 09/11/20 22:13 RDW Std Deviation 37.5 fL (36.4-46.3) 09/11/20 22:13 RDW Coeff of Meryl 11.7 % (11.5-14.5) 09/11/20 22:13 Plt Count 247 K/uL (130-400) 09/11/20 22:13 MPV 9.1 fL (7.4-10.4) 09/11/20 22:13 Immature Gran % (Auto) 0.4 % 09/11/20 22:13 Neut % (Auto) 86.2 % 09/11/20 22:13 Lymph % (Auto) 6.1 % 09/11/20 22:13 Bent % (Auto) 7.1 % 09/11/20 22:13 Eos % (Auto) 0.1 % 09/11/20 22:13 Baso % (Auto) 0.1 % 09/11/20 22:13 Neut # (Auto) 13.35 K/uL (1.4-6.5) H 09/11/20 22:13 Lymph # (Auto) 0.95 K/uL (1.2-3.4) L 09/11/20 22:13 Bent # (Auto) 1.10 K/uL (0.11-0.59) H 09/11/20 22:13 Eos # (Auto) 0.02 K/uL (0-0.5) 09/11/20 22:13 Baso # (Auto) 0.01 K/uL (0-0.2) 09/11/20 22:13 Immature Gran # (Auto) 0.06 K/uL (0.00-0.02) H 09/11/20 22:13 Sodium 122 mmol/L (136-145) L 09/11/20 22:13 Potassium 4.0 mmol/L (3.5-5.1) 09/11/20 22:13 Chloride 88 mmol/L (98-107) L 09/11/20 22:13 Carbon Dioxide 25 mmol/L (21-32) 09/11/20 22:13 Anion Gap 9.0 (3-11) 09/11/20 22:13 BUN 17 mg/dl (7-18) D 09/11/20 22:13 Creatinine 0.72 mg/dl (0.6-1.4) 09/11/20 22:13 Est Cr Clr Drug Dosing 72.7 ml/min 09/11/20 22:13 Est GFR ( Amer) 100.0 ml/min 09/11/20 22:13 Est GFR (Non-Af Amer) 86.3 ml/min 09/11/20 22:13 BUN/Creatinine Ratio 23.2 (10-20) H 09/11/20 22:13 Glucose 132 mg/dl (70-99) H 09/11/20 22:13 Calcium 8.9 mg/dl (8.5-10.1) 09/11/20 22:13 Total Bilirubin 1.4 mg/dl (0.2-1) H 09/11/20 22:13 AST 34 U/L (15-37) 09/11/20 22:13 ALT 31 U/L (12-78) 09/11/20 22:13 Alkaline Phosphatase 96 U/L (45-117) 09/11/20 22:13 Troponin I < 0.015 ng/ml (0-0.045) 09/11/20 22:13 Total Protein 7.1 gm/dl (6.4-8.2) 09/11/20 22:13 Albumin 3.6 gm/dl (3.4-5.0) 09/11/20 22:13 Globulin 3.5 gm/dl (2.5-4.0) 09/11/20 22:13 Albumin/Globulin Ratio 1.0 (0.9-2) 09/11/20 22:13 Lipase 228 U/L (73-393) 09/11/20 22:13 Code Status & VTE Plan Code Status Full code VTE Prophylaxis Plan VTE Prophylaxis will be ordered: Yes PG Care Time/CCT Total # of Minutes Spent Total Time Spent with Patient: Total time spent is greater than 50% in coordination of care (as documented) at patient's floor/unit and/or counseling patient: Coding Level of Care Code 76034 OBS Care - Level 3 Diagnoses Hyponatremia E87.1 Polydipsia R63.1 CAD (coronary artery disease) I25.10 Hyperlipidemia E78.5 Hypertension I10 Mild cognitive impairment G31.84 Lung nodule R91.1
[2020-09-12] MEDS ORDERED: ONDANSETRON INJ 2 MG/ML 2 ML VIAL IV PRN (03:54)
--- NOTE | 2020-09-12 07:09 | Hospitalist Progress Note ---
Date of Service September 12, 2020 Assessment & Plan (1) Hyponatremia: Toni Mart is a 84M w/ htn/hld, mild cognitive impairment, CAD, and likely lung malignancy who presents as readmit hours after hosp discharge on 09/11/20. The prior admission was for chest pain. Patient re-presented after complaining of right lateral chest wall pain and was found to be hyponatremic to 122 in the ED. euvolemic hyponatremia - 122 on admission, down from 128 earlier in day on 09/11. - Serum osmolality 259, urine osmolality 329. 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 SIADH is possible w/ patient's likely lung malignancy. He was not hyponatremic on labs several months ago. It is possible that the 128->122 in same day was routine variation as opposed to polydipsia. Intake hx was reconfirmed w/ patient and he does not report thirst or urinary frequency. - Because suspecting SIADH, will d/c salt tabs. Will monitor for progress w/ fluid restriction alone. Can consider vaptans in future. - Fluid restrict 1500 mL - 09/13 afternoon Na was 127. daily BMP starting 09/13 because correcting Na w/ fluid restriction alone and less likely to correct too quickly. Right lateral rib pain and right thoracic paraspinal tenderness - hx and symptoms most consistent w/ MSK etiology. onset was yesterday during day when patient was walking over to wheelchair. - also supported by tenderness to palpation on exam - gallbladder US not suggestive of acute cholecystitis - tylenol PRN. added voltaren gel PRN Hypokalemia - 3.4, repleted w/ 40meq PO CAD - stable, no recurrence of chest pain this admission - continue aspirin, clopidogrel and metoprolol succinate - outpatient cardio f/u still planned w/ likely outpatient stress test HLD - Continue atorvastatin 80 mg qhs - Hold fish oil HTN - continue home metoprolol xl 25 mg qhs - PRN IV short acting antihypertensive if sustained >170 systolic mild cognitive impairment - continue home memantine and vitamin D lung nodules - outpt f/u FEN/GI: HH, fluid restrict <1500g ppx: heparin 5000u q12 code: full dispo: med/surg tele (2) Polydipsia: (3) CAD (coronary artery disease): (4) Hyperlipidemia: (5) Hypertension: (6) Mild cognitive impairment: (7) Lung nodule: Admission and Anticipated Discharge Date Admission Date: September 12, 2020 Supervising Physician Co-Signing Physician Notes I personally examined the patient and verified all george points of history and exam, discussed case, and agree with decision making with Dr Esquivel. Right-sided flank pain about the same. No other new complaints. On discussion of his dietary history, it sounds like he drinks about 40 ounces of water a day at home, and eats well and regularly. Vitals noted, in general he is awake and alert pleasant no distress. HEENT normocephalic atraumatic mucous membranes moist. Breathing unlabored no accessory muscle use good effort. Musculoskeletal exam shows palpable tenderness his right lower rib cage around ribs 8-10gentle balanced ligamentous tension attempted with some change in soft tissue texture, patient tolerated well. Labs noted. Hyponatremiagiven that he does not have polydipsia, and given that he does not appear malnourished, nor does he give a history of poor p.o. intake, I am much more suspicious this is a degree of SIADHlikely related to the lung nodule. Stop Lasix, stop salt tabs, fluid restrict to see how well that works for him, and then if his sodium is still difficult to maintain, consider something like tolvaptan/plus or minus nephrology consult. Lung noduleoutpatient pulmonary follow-up Right-sided flank painappears to be rib related, attempted OMT, continue to treat as biomechanical. Chest painhe was just in the hospital with chest pain, was to have an outpatie nt stress test, given that he is not having any chest pain this can still be pursued as an outpatient, but should his pain return then inpatient testing would be reasonable as well. Dispositionanticipate home with his once his sodium is more stabilized, outpatient stress test, outpatient pulmonary follow-up. DVT proph - ambulation and SCDs Otherwise as above Subjective Patient has some pain below R shoulder blade, new. He has some mild R side rib discomfort. He denies having had any chest pain. Normal appetite. Denies polydipsia or urinary frequency. Current pain level is 5-6 at right middle back that he attributes to laying on bed. For both last night and today, denies any chest pain/pressure, numbness/tingling, jaw pain, nausea/vomiting, abd pain, diaphoresis. Review of Systems Review of Systems: Constitutional: Denies fever, chills, Eyes: Denies blurry vision, vision changes ENT: Denies sore throat, sinus pain Cardiovascular: Denies chest pain, palpitations Respiratory: Denies shortness of breath Gastrointestinal: Denies abdominal pain, nausea, vomiting, constipation, diarrhea Genitourinary: Denies urinary symptoms including dysuria Musculoskeletal: Denies weakness. See HPI. Neurological: Denies headache, numbness, tingling, focal weakness Physical Exam Physical Exam: General: Grossly A&O. NAD. Cooperative. HEENT: Atraumatic, normocephalic. EOMI Pulm: CTAB. -wheezes, -rales, -rhonchi. No respiratory distress. Cardiac: RRR, -mrg. Radial pulses intact and symmetrical. Abdominal: Nontender, nondistended, soft. Msk: Right rotator cuff has full strength and sensation. Neg liftoff test. No shoulder blade TTP. Mild R side rib ttp, but hard to localize. No cva ttp. No pain w/ neck rom. No spinal ttp. + thoracic R paraspinal ttp Results & Data Results & Data ([facility]) Vital Signs (Past 12 Hours) Vital Signs Temp Pulse Pulse Resp BP BP Pulse Ox 09/12/20 04:12 63 09/12/20 03:58 36.5 C 75 18 148/77 H 95 09/12/20 03:10 69 25 H 168/91 H 92 09/12/20 03:00 64 23 187/99 H 93 09/12/20 02:50 67 20 175/96 H 96 09/12/20 02:40 69 14 176/104 H 09/12/20 02:30 66 22 175/96 H 95 09/12/20 02:25 66 22 160/93 H 95 09/12/20 02:21 66 22 160/93 H 95 09/12/20 02:20 69 22 181/108 H 95 09/12/20 02:10 65 21 149/101 H 95 09/12/20 02:03 65 20 96 09/12/20 02:01 67 22 166/84 H 94 09/12/20 02:00 71 23 174/104 H 96 09/12/20 01:45 195/99 H 96 09/12/20 01:30 191/95 H 96 09/12/20 01:25 198/100 H 96 09/12/20 01:24 96 09/12/20 00:45 68 17 188/98 H 94 09/12/20 00:31 67 22 95 09/12/20 00:30 68 23 92 09/12/20 00:15 67 23 186/93 H 94 09/12/20 00:00 67 20 188/95 H 94 09/11/20 23:45 68 24 199/114 H 95 09/11/20 23:30 68 20 96 09/11/20 23:25 68 22 191/117 H 96 09/11/20 23:16 68 18 96 09/11/20 23:00 71 20 193/99 H 95 09/11/20 22:45 81 23 199/96 H 95 09/11/20 22:30 74 19 197/98 H 95 09/11/20 22:16 75 20 95 09/11/20 22:15 76 21 189/96 H 92 09/11/20 22:08 77 23 185/98 H 95 09/11/20 22:07 77 23 95 09/11/20 22:05 76 18 203/99 H 95 09/11/20 22:02 74 98 09/11/20 21:52 36.7 C 93 H 93 H 177/97 H 95 Resident Activity Tracking Resident Involvement: Resident Care Provided Care Provided: Adult Hospital Medicine
--- NOTE | 2020-09-12 07:50 | XRay Report ---
XR chest 1V portable CLINICAL HISTORY: Atypical chest pain COMPARISON STUDY: 09/10/2020 FINDINGS: The cardiac and mediastinal contours are normal. There is no evidence of focal pulmonary co nsolidation. There is no evidence of failure. No pleural effusions are visualized.[Electronic device projects over the left lung base likely representing a cardiac loop recorder. IMPRESSION: No active disease in the chest. ACT 112: Negative or not required by law. Electronically signed by: Donovan Brownlee M.D. 09/12/2020 7:49 AM
--- NOTE | 2020-09-12 08:12 | Ultrasound Report ---
US gallbladder CLINICAL HISTORY: RUQ pain COMPARISON STUDY: PET/CT August 02, 2009. FINDINGS: This exam is compromised by suboptimal penetration. No hepatic lesions are identified. Ther e is no biliary ductal dilatation. The common bile duct measures 4 mm in caliber. No gallstones are i dentified. Sludge within the gallbladder is noted. No sonographic Mari sign was reported. There is no evidence for acute cholecystitis. Pancreatic body is normal. Head and tail are obscured. There is no right hydronephrosis. IMPRESSION: 1. Sludge within the gallbladder. No evidence for acute cholecystitis by sonography. 2. No biliary ductal dilatation. 2. Exam compromised by suboptimal penetration. Partially obscured pancreas. ACT 112: Negative or not required by law. Electronically signed by: Lloyd Ramos M.D. 09/12/2020 8:11 AM
[2020-09-12] MEDS: CHOLECALCIFEROL 1,000 UNITS 25 MCG TAB PO SCH (08:33)
[2020-09-12] MEDS: CLOPIDOGREL BISULFATE 75 MG TAB PO SCH (08:33)
[2020-09-12] MEDS: MULTIVITAMIN TAB PO SCH (08:33)
[2020-09-12] MEDS: ASCORBIC ACID 500 MG TAB PO SCH (08:33)
[2020-09-12] MEDS: CALCIUM 600MG + VIT D 400 IU TAB PO SCH (08:33)
[2020-09-12] MEDS: OMEGA-3 (PURIFIED FISH OIL) 1 GM CAP PO SCH ×2 (08:34→20:14)
[2020-09-12] MEDS: HEPARIN SOD 5,000 UNIT/0.5 ML VIAL SQ SCH ×2 (08:34→20:14)
[2020-09-12] MEDS: VITAMIN B COMPLEX TAB PO SCH (08:34)
[2020-09-12] MEDS: TOCOPHERYL, DL-ALPHA 100 UNITS CAP PO SCH (08:34)
[2020-09-12] MEDS: LIDOCAINE 5% 1 PATCH TD SCH (08:35)
[2020-09-12] MEDS ORDERED: SODIUM CHLORIDE 1 GM TABLET PO SCH (09:00)
[2020-09-12] MEDS ORDERED: NON-FORMULARY MEDICATION (Coenzyme Q10 100 mg capsule) PO SCH (09:00)
[2020-09-12] MEDS: ACETAMINOPHEN 325 MG TAB PO PRN (11:08)
[2020-09-12] MEDS ORDERED: DICLOFENAC SOD 1% GEL 100 GM TUBE EXT PRN (14:39)
[2020-09-12 15:42] LABS: BUN Creatinine Ratio 18.7 (10-20); Calcium 8.5 mg/dl (8.5-10.1); Creatinine Clr Calc Pharmacy 88.7 ml/min; Est GFR (African American) 108.5 ml/min; Est GFR (Non-African American) 93.6 ml/min
[2020-09-12 15:48] LABS: Potassium 3.4 mmol/L (3.5-5.1)
[2020-09-12] MEDS ORDERED: POTASSIUM CHLORIDE CRTAB 20 MEQ TABCR PO STA (16:12)
--- NOTE | 2020-09-12 17:46 | Billing Data ---
Date of Service September 12, 2020 Coding Level of Care Code 21645 Subseq Obs Care Lvl 3
--- NOTE | 2020-09-12 18:47 | Electrocardiogram Report ---
Test Reason : Blood Pressure : / mmHG Vent. Rate : 083 BPM Atrial Rate : 083 BPM P-R Int : 182 ms QRS Dur : 092 ms QT Int : 370 ms P-R-T Axes : 064 022 057 degrees QTc Int : 434 ms Normal sinus rhythm Normal ECG When compared with ECG of 11-SEP-2020 05:46, No significant change was found Confirmed by Jason Lema ([id number]) on 09/12/2020 6:46:59 PM Referred By: REFERRED SELF Confirmed By:Rodrick Lema
[2020-09-12] MEDS ORDERED: MEMANTINE HCL 10 MG TAB PO SCH (21:00)
[2020-09-12] MEDS ORDERED: METOPROLOL SUCC 25MG EXT REL TAB PO SCH (21:00)
[2020-09-12] MEDS ORDERED: ATORVASTATIN 40 MG TAB PO SCH (21:00)
[2020-09-12] MEDS ORDERED: ASPIRIN 81 MG ECTAB PO SCH (21:00)
[2020-09-13 07:33] LABS: Basophils # (auto) 0.02 K/uL (0-0.2); Basophils % (auto) 0.2 %; Eosinophils # (auto) 0.07 K/uL (0-0.5); Eosinophils % (auto) 0.6 %; Hematocrit (blood only) 40.4 % (42-52); Hemoglobin 14.8 g/dL (14.0-18.0); Immature Granulocytes # (auto) 0.03 K/uL (0.00-0.02); Immature Granulocytes % (auto) 0.3 %; Lymphocytes # (auto) 1.21 K/uL (1.2-3.4); Lymphocytes % (auto) 10.8 %; Mean Corpuscular Hemoglobin 33.1 pg (25-34); Mean Corpuscular Hgb Conc 36.6 g/dL (32-36); Mean Corpuscular Volume 90.4 fL (80-100); Mean Platelet Volume 8.8 fL (7.4-10.4); Monocytes % (auto) 10.7 %; Neutrophils # (auto) 8.65 K/uL (1.4-6.5); Neutrophils % (auto) 77.4 %; Platelet Count 235 K/uL (130-400); RDW Coefficient of Variation 11.8 % (11.5-14.5); Red Blood Count 4.47 M/uL (4.7-6.1); White Blood Count 11.18 K/uL (4.8-10.8)
[2020-09-13] MEDS: ACETAMINOPHEN 325 MG TAB PO PRN (07:44)
[2020-09-13] MEDS: HEPARIN SOD 5,000 UNIT/0.5 ML VIAL SQ SCH (07:44)
[2020-09-13] MEDS: LIDOCAINE 5% 1 PATCH TD SCH (07:44)
[2020-09-13] MEDS: VITAMIN B COMPLEX TAB PO SCH (07:45)
[2020-09-13] MEDS: OMEGA-3 (PURIFIED FISH OIL) 1 GM CAP PO SCH (07:45)
[2020-09-13] MEDS: CHOLECALCIFEROL 1,000 UNITS 25 MCG TAB PO SCH (07:45)
[2020-09-13] MEDS: ASCORBIC ACID 500 MG TAB PO SCH (07:45)
[2020-09-13] MEDS: MULTIVITAMIN TAB PO SCH (07:45)
[2020-09-13] MEDS: CLOPIDOGREL BISULFATE 75 MG TAB PO SCH (07:45)
[2020-09-13] MEDS: CALCIUM 600MG + VIT D 400 IU TAB PO SCH (07:45)
[2020-09-13] MEDS: TOCOPHERYL, DL-ALPHA 100 UNITS CAP PO SCH (07:45)
[2020-09-13 08:15] LABS: BUN Creatinine Ratio 22.3 (10-20); Calcium 8.9 mg/dl (8.5-10.1); Creatinine Clr Calc Pharmacy 95.1 ml/min; Est GFR (African American) 111.7 ml/min; Est GFR (Non-African American) 96.4 ml/min; Potassium 4.2 mmol/L (3.5-5.1)
--- NOTE | 2020-09-13 16:20 | Discharge Summary ---
Date of Service September 13, 2020 Admission HPI Per Admitting Provider The patient is an 89-year-old male with a past medical history including lung nodule, hyponatremia, CAD, hyperlipidemia, hypertension, and mild cognitive impairment. He was discharged earlier in the day, that needed to be after being in hospital from 09/10-09/11/2020. He did undergo cardiac work-up including echocardiogram and consultation by cardiology, and plan was to follow-up with cardiology in outpatient setting for possible stress test. Work-up in the emergency department include the following significant lab abnormalities: Sodium worsened from 128 earlier in the day to 122, serum osmolality 259 and urine osmolality was 329. Admission Exam Per Admitting Provider Exam: The patient is awake, alert and oriented 3, well developed and well nourished, normocephalic and atraumatic, lying in bed and in no acute distress. HEENT--PERRL, EOMI, mucous membranes and oropharynx moist Neck--supple. No JVD. No bruits. Thyroid normal, trachea midline, no adenopathy. Heart--normal S1 and S2. No murmurs, rubs or gallops. Lungs/chest wall--clear bilaterally, no respiratory distress, no accessory muscle use. Easily reproducible pain over lower right posterior ribs. Abdomen--normal bowel sounds and soft. Nontender. Nondistended, no hernias or masses, no organomegaly. Extremities--no cyanosis or clubbing. No edema. Dermatologic--scattered ecchymoses Neurologic--cranial nerves II through XII grossly intact. Rheumatologic--normal range of motion. Psychiatric--normal affect. Principal Diagnosis hyponatremia Discharge Exam General: 84yoM who appears well and is fully alert and oriented during our conversation. Intermittently forgetful about previously covered topics. NAD. HEENT: NCAT. Eyes - Sclera are white, anicteric, and without injection. PERRL. EOMs display full ROM bilaterally. Mouth - MMM with no tonsillar edema or ex udates. Cardiac: Normal rate and regular rhythm; S1 and S2 present with no murmurs, rubs, or gallops. Pulmonary: Good respiratory effort with symmetric expansion of the chest. No use of accessory muscles. Lungs were clear to auscultation bilaterally with no crackles or wheezes. Abdominal: Normoactive bowel sounds. Abdomen was soft, nondistended, and non- tender to palpation. No R sided flank pain / TTP. Extremities: Upper and lower extremities are warm and well perfused. Discharge Data Allergies Allergy/AdvReac Type Severity Reaction Status Date / Time cinnamon Allergy Unknown Unknown Verified 09/11/20 23:01 Sulfa (Sulfonamide Allergy Unknown Unknown Verified 09/11/20 23:01 Antibiotics) Consultations 09/12/20 02:11 ED Decision to Admit Stat Ordered Studies 09/12/20 00:00 US gallbladder Urgent Hospital Course (1) Hyponatremia: Toni Mart is a 84M w/ htn/hld, mild cognitive impairment, CAD, and suspicious lung nodule who presents as readmit hours after hospital discharge on 09/11/20. The prior admission was for chest pain. Patient re-presented after complaining of right lateral chest wall pain and was found to be hyponatremic to 122 in the ED. euvolemic hyponatremia - 122 on admission, down from 128 earlier in day on 09/11 --> at time of discharge, Na 127 - work-up as follows: - Serum osmolality 259, urine osmolality 329. 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 Limited fluid intake to 1500cc/day - responded well. - Continue fluid restriction upon discharge (until seen by PCP w/i 1 week) - Repeat labs provided to patient (RX) for 09/15/20 - Can consider vaptans in future if persistent Right lateral rib pain and right thoracic paraspinal tenderness - hx and symptoms most consistent w/ MSK etiology. onset was yesterday during day when patient was walking over to wheelchair. - also supported by tenderness to palpation on exam - gallbladder US not suggestive of acute cholecystitis - spontaneously resolved with tylenol, Voltaren gel - Voltaren RX sent to patient's pharmacy - tylenol PRN. added voltaren gel PRN Lung Nodule (at [facility]) - CT-A/P from previous admission revealing of: "7 mm left lower lobe pulmonary nodule. This is pathologically indeterminant but new from studies dating 2008 and 2009. Neoplasm is the diagnosis of exclusion. A 3 month follow-up chest CT is recommended for reassessment, and nonemergent pulmonology follow-up is advised." - No significant smoking, occupational / environmental exposure history that seems to put patient at higher risk of small cell - Discussed this finding with patient - Unclear whether or not this may have relationship with SIADH - 3 month follow-up CT recommended Hypokalemia - Resolved prior to d/c (4.2) with replacement CAD - stable, no recurrence of chest pain this admission - continue aspirin, clopidogrel and metoprolol succinate - outpatient cardio f/u still planned w/ likely outpatient stress test HLD - Continue atorvastatin 80 mg qhs, fish oil at discharge HTN - continue home metoprolol xl 25 mg qhs mild cognitive impairment - continue home memantine and vitamin D (2) Polydipsia: (3) CAD (coronary artery disease): (4) Hyperlipidemia: (5) Hypertension: (6) Mild cognitive impairment: (7) Lung nodule: Total Time Total Time Spent Total Time Spent (In Minutes): 30 Discharge Plan Discharge Items Patient Disposition: Home - Self-Care Reason For Visit: CHEST WALL PAIN, HYPONATREMIA Discharge Diagnosis: hyponatremia (low blood sodium) Activity: Per Instructions section Non-emergency contact: Primary Care Provider Call non-emergency contact if: your symptoms worsen, your pain is not controlled and your temperature is above 101 Follow-up/Referrals: Yunier Shoemaker MD [Primary Care Provider] - 09/15/20 11:15 am (If you have any questions or need to change this appointment, please call [phone].) Diet: Heart Healthy Fluids: 1500ml (6 cups) Ambulatory Orders: Basic Metabolic Panel (Routine) Timeframe: 2 Days Location: Determined by Patient Ordered By: Santosh Donahue Attending Provider Instructions: Upon your arrival to [facility], you were found to have a low blood sodium. Sodium is a salt in your blood that place an important role in the regulation of your body's organ systems; when the sodium is too high or too low, organs can function abnormally. During your stay here, we focused on improving the sodium while trying to figure out the cause of it as well. By time of discharge, your sodium had improved but still requires a few more points before returning to normal. It is very important that you restrict total fluid intake to no more than 1500 mL (1.5 L) a day until otherwise directed by your primary care provider. Thankfully, your right flank pain demonstrated great improvement throughout your stay here; it resolved spontaneously. It is thought that this is most likely musculoskeletal in etiology, possibly inflammation of the spaces between the ribs. We recommend taking Tylenol as needed to aid with pain. You may also apply Voltaren (an anti-inflammatory) gel locally if your pain recurs to. A prescription of this has been sent off to your pharmacy. As discussed, a CT scan of your chest obtained during your last hospital admission (on 09/10) did demonstrate a small, but abnormal spot in your lung that will require further work-up, pending discussions with your primary care provider. It is recommended that you obtain repeat imaging in 3 months time to further characterize the spot. No medications were added or changed during this admission. Please follow-up with your primary care provider in 1 week to review this visit. Please have labs re-drawn in two (2) days to recheck your blood sodium. In the interim, if you begin experiencing any new dizziness, lightheadedness, feeling like you might pass out, shortness of breath, generalized weakness, new or worsening pain, or other worrisome symptoms, please seek medical attention; if your symptoms are serious, please call 911 or report to the ER for further work- up. Pending Studies at Discharge: No Stand-Alone Forms: My [facility], Smoking Cessation Medications and DC Order Prescriptions: New diclofenac sodium [Arthritis Pain (diclofenac)] 1 % gel 2 g topical QID PRN (Reason: Rib Pain) 7 Days Qty: 50 RF: 0 Continued atorvastatin 80 mg tablet 80 mg PO HS Qty: 90 RF: 0 coenzyme Q10 100 mg capsule 100 mg PO QAM RF: 0 metoprolol succinate 25 mg tablet extended release 24 hr 25 mg PO HS RF: 0 multivitamin [Daily Multi-Vitamin] tablet 1 tab PO QAM RF: 0 ascorbic acid (vitamin C) 500 mg capsule 500 mg PO QAM RF: 0 cholecalciferol (vitamin D3) 1,000 unit capsule 1,000 unit PO QAM RF: 0 vitamin E succinate 200 unit tablet 200 unit PO QAM RF: 0 aspirin 81 mg Tablet,Delayed Release (Dr/Ec) 81 mg PO HS RF: 0 calcium carbonate [Calcium 600] 600 mg calcium (1,500 mg) Tablet 600 mg PO QAM RF: 0 vitamin B complex Tablet 1 tab PO QAM RF: 0 omega 4-yot-czt-fish oil [Fish Oil] 1,200 (144-216) mg Capsule 1 cap PO BID RF: 0 memantine 10 mg tablet 10 mg PO HS RF: 0 clopidogrel 75 mg Tablet 75 mg PO QAM 30 Days Qty: 30 RF: 1 Discontinued nitroglycerin [Nitrostat] 0.4 mg Tablet, Sublingual 0.4 mg sublingual UD 30 Days Qty: 15 RF: 1 Discharge Orders: Discharge Order (Routine); Ordered 09/13/20 Ordered By: Santosh Solorzano/Other Patient Handouts: Hyponatremia Dc Admission Data Admit Date/Time: 09/12/20 02:34 Attending Provider: Jyoti Kan Admit Provider: Dougie Cowan Primary Care Provider: Yunier Shoemaker Other Providers: Dougie Cowan Other Interventions: Discharge Summary Assessment (RN) Last Done: 09/13/20 17:08 Supervising Physician Co-Signing Physician Notes Patient seen and examined with PGY-1 Dr. Niño. Agree with history, exam findings, assessment and plan of care as outlined. 84 year old male with hx of HTN, HLD, mild cognitive impairment, CAD admitted with chest pain and hyponatremia. Chest pain is resolved. Feeling well. 1. Hyponatremia. Na 122?127?128. 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 Fluid restrict to 1500cc/day. 2. Lung nodules. 7mm left lower lobe nodule. Will need follow up chest CT in 3 months. 3. Right lateral rib/chest pain. MSK etiology. Tylenol and voltaren. 4. CAD. Continue ASA, Plavix and metoprolol XL, atorvastatin. 5. HTN. Continue home metoprolol. 6. Mild cognitive impairment. Continue home memantine Dispo: discharge home today. I personally spent 25 minutes discharge planning for this patient Resident Activity Tracking Resident Involvement: Resident Care Provided Care Provided: Adult Hospital Medicine
== END 2020-09-13 19:03 | disposition home or self-care (01) ==
LOC: 2W 21:50 → ED 21:50 → SUATTDRO 09-12 02:34 → 2W 09-12 03:37